=== PATIENT | male | born 1995 | race Caucasian/White ===

== ENCOUNTER 2020-06-08 05:02 | Inpatient (IN) | payer BC ==
[2020-06-08] MEDS ORDERED: SODIUM CHLORIDE 0.9% 500 ML 500 ML IV STA (05:30)
[2020-06-08] MEDS ORDERED: KETOROLAC 15 MG/ML 1 ML VIAL IVP STA (05:30)
--- NOTE | 2020-06-08 05:34 | ED ---
Abdominal Pain HPI - General Chief Complaint: Abdominal Pain Stated Complaint: Abdominal Pain Time Seen by Provider: 06/08/20 05:25 Source: patient Mode of arrival: ambulatory Limitations: no limitations - History of Present Illness Initial Comments: This patient is 24-year-old man presenting to be evaluated for right lower quadrant abdominal pain. The patient states pain and come on yesterday in the evening. Initially it was mild to moderate, he was able tolerate the pain. Over the course of the evening and into the morning it has become more severe. He also has had some nausea associated and did have episode of vomiting. MD Complaint: abdominal pain Onset/Timin -: hour(s) Location: RLQ Radiation: none Migration to: no migration Severity: severe Severity scale (1-10): 8 Quality: sharp Consistency: intermittent Improves With: nothing Worsens With: nothing Associated Symptoms: nausea - Related Data Allergies Allergy/AdvReac Type Severity Reaction Status Date / Time No Known Allergies Allergy Verified 06/08/20 05:12 Review of Systems ROS Statement: Those systems with pertinent positive or pertinent negative responses have been documented in the HPI. ROS Other: All systems not noted in ROS Statement are negative. Constitutional: Denies: fever, chills Respiratory: Denies: cough, dyspnea Cardiovascular: Denies: chest pain, palpitations, edema Gastrointestinal: Reports: abdominal pain, nausea, vomiting. Denies: diarrhea, constipation, melena, hematochezia Genitourinary: Denies: dysuria, frequency, hematuria, testicular pain, testicular mass Musculoskeletal: Denies: back pain Skin: Denies: rash Neurological: Denies: headache Past Medical History Past Medical History: No Reported History History of Any Multi-Drug Resistant Organisms: None Reported Past Surgical History: No Surgical Hx Reported Past Psychological History: No Psychological Hx Reported Smoking Status: Never smoker Past Alcohol Use History: None Reported Past Drug Use History: None Reported General Exam Limitations: no limitations General appearance: alert, in no apparent distress Head exam: Present: atraumatic, normocephalic Eye exam: Present: normal appearance. Absent: scleral icterus, conjunctival inj ection ENT exam: Present: normal oropharynx Respiratory exam: Present: normal lung sounds bilaterally. Absent: respiratory distress, wheezes, rales, rhonchi, stridor Cardiovascular Exam: Present: regular rate, normal rhythm, normal heart sounds. Absent: systolic murmur, diastolic murmur, rubs, gallop GI/Abdominal exam: Present: soft, tenderness, normal bowel sounds. Absent: distended, guarding, rebound, rigid, mass, pulsatile mass Extremities exam: Present: normal inspection, normal capillary refill. Absent: pedal edema, calf tenderness Back exam: Present: normal inspection. Absent: CVA tenderness (R), CVA tenderness (L) Neurological exam: Present: alert Skin exam: Present: warm, dry, intact, normal color. Absent: rash Course Vital Signs 06/08/20 06/08/20 05:10 06:50 Temperature 98 F 98.4 F Pulse Rate 97 103 H Respiratory 20 16 Rate Blood Pressure 135/70 110/66 O2 Sat by Pulse 98 96 Oximetry Medical Decision Making - Lab Data Result diagrams: 06/08/20 05:36 06/08/20 05:36 Lab Results 06/08/20 06/08/20 Range/Units 05:36 05:36 WBC 16.5 H (3.8-10.6) k/uL RBC 5.56 (4.30-5.90) m/uL Hgb 16.8 (13.0-17.5) gm/dL Hct 46.5 (39.0-53.0) % MCV 83.7 (80.0-100.0) fL MCH 30.3 (25.0-35.0) pg MCHC 36.2 (31.0-37.0) g/dL RDW 13.1 (11.5-15.5) % Plt Count 231 (150-450) k/uL MPV 7.3 Neutrophils % 77 % Lymphocytes % 14 % Monocytes % 7 % Eosinophils % 1 % Basophils % 1 % Neutrophils # 12.7 H (1.3-7.7) k/uL Lymphocytes # 2.4 (1.0-4.8) k/uL Monocytes # 1.1 H (0-1.0) k/uL Eosinophils # 0.1 (0-0.7) k/uL Basophils # 0.1 (0-0.2) k/uL Hyperchromasia Slight Sodium 138 (137-145) mmol/L Potassium 3.8 (3.5-5.1) mmol/L Chloride 102 (98-107) mmol/L Carbon Dioxide 25 (22-30) mmol/L Anion Gap 11 mmol/L BUN 12 (9-20) mg/dL Creatinine 0.82 (0.66-1.25) mg/dL Est GFR (CKD-EPI)AfAm >90 (>60 ml/min/1.73 sqM) Est GFR (CKD-EPI)NonAf >90 (>60 ml/min/1.73 sqM) Glucose 139 H (74-99) mg/dL Calcium 10.5 H (8.4-10.2) mg/dL Total Bilirubin 1.0 (0.2-1.3) mg/dL AST 24 (17-59) U/L ALT 33 (4-49) U/L Alkaline Phosphatase 82 (38-126) U/L Total Protein 8.1 (6.3-8.2) g/dL Albumin 5.1 H (3.5-5.0) g/dL Amylase 62 (30-110) U/L Lipase 81 (23-300) U/L Disposition Clinical Impression: Acute appendicitis Disposition: ADMITTED IP TO THIS [facility] Condition: Good Is patient prescribed a controlled substance at d/c from ED?: No
--- NOTE | 2020-06-08 05:55 | CT ---
EXAM: CT Abdomen and Pelvis Without Intravenous Contrast CLINICAL HISTORY: ITS.REASON CT Reason: Abdominal pain, acute, RLQ TECHNIQUE: Axial computed tomography images of the abdomen and pelvis without intravenous contrast. CTDI is 10.57 mGy and DLP is 646.7 mGy-cm. This CT exam was performed using one or more of the following dose reduction techniques: automated exposure control, adjustment of the mA and/or kV according to patient size, and/or use of iterative reconstruction technique. COMPARISON: No previous studies. FINDINGS: Lung bases: Unremarkable. No mass. No consolidation. Pleural space: No pleural effusions noted. Heart: Heart is normal in size. ABDOMEN: Liver: Unremarkable. Gallbladder and bile ducts: Gallbladder is unremarkable. No calcified stones. No ductal dilation. Pancreas: Unremarkable. No ductal dilation. Spleen: Unremarkable. No splenomegaly. Adrenals: Unremarkable. No mass. Kidneys and ureters: No renal calculus or hydronephrosis. Stomach and bowel: Moderate quantity of stool throughout the colon without bowel obstruction. No mucosal thickening. PELVIS: Appendix: Appendix is markedly distended containing a 0.6 cm appendicolith at its base and two 0.7 cm appendicolith at its tip. Inflammatory changes are noted about the appendix without abscess formation. Bladder: Bladder is underdistended. No stones. Reproductive: Unremarkable as visualized. ABDOMEN and PELVIS: Intraperitoneal space: Minimal free intra-abdominal air is noted best seen on coronal image 47 and 46. No significant fluid collection. Bones/joints: No spondylolysis. No acute fracture. No dislocation. Soft tissues: Unremarkable. Vasculature: Unremarkable. No abdominal aortic aneurysm. Lymph nodes: Unremarkable. No enlarged lymph nodes. IMPRESSION: 1. Acute appendicitis without abscess formation but with possible early rupture. 2. Appendicolith. 3. Minimal free intra-abdominal air is noted indicative of ruptured viscus. 4. Surgical consultation is advised. <MYCVCSECTION> Communications: 06/08/20 05:57 Call Doctor Regarding Appendicitis, called Dr. Anderson on 06/08 05:57 (-05:00)
[2020-06-08] MEDS ORDERED: MORPHINE SULFATE 4 MG/ML SYRINGE IV STA (06:03)
[2020-06-08 06:06] LABS: Basophils # (A) 0.1 k/uL (0-0.2); Basophils % (A) 1 %; Eosinophils # (A) 0.1 k/uL (0-0.7); Eosinophils % (A) 1 %; HCT 46.5 % (39.0-53.0); HGB 16.8 gm/dL (13.0-17.5); Hyperchromasia Slight; Lymphocytes # (A) 2.4 k/uL (1.0-4.8); Lymphocytes % (A) 14 %; MCH 30.3 pg (25.0-35.0); MCHC 36.2 g/dL (31.0-37.0); MCV 83.7 fL (80.0-100.0); Mean Platelet Volume 7.3; Monocytes # (A) 1.1 k/uL (0-1.0); Monocytes % (A) 7 %; Neutrophils # (A) 12.7 k/uL (1.3-7.7); Neutrophils % (A) 77 %; Platelet Count 231 k/uL (150-450); RBC 5.56 m/uL (4.30-5.90); RDW 13.1 % (11.5-15.5); WBC 16.5 k/uL (3.8-10.6)
[2020-06-08 06:18] LABS: ALT 33 U/L (4-49); AST 24 U/L (17-59); African American GFR (CKD) >90 (>60 ml/min/1.73 sqM); Albumin 5.1 g/dL (3.5-5.0); Alkaline Phosphatase 82 U/L (38-126); Amylase 62 U/L (30-110); Anion Gap 11 mmol/L; Blood Urea Nitrogen 12 mg/dL (9-20); Calcium 10.5 mg/dL (8.4-10.2); Carbon Dioxide 25 mmol/L (22-30); Chloride 102 mmol/L (98-107); Glucose 139 mg/dL (74-99); Lipase 81 U/L (23-300); Non-African American GFR(CKD) >90 (>60 ml/min/1.73 sqM); Potassium 3.8 mmol/L (3.5-5.1); Sodium 138 mmol/L (137-145); Total Protein 8.1 g/dL (6.3-8.2)
[2020-06-08] MEDS ORDERED: AMPICILLIN-SULBACTAM 3 GM in SODIUM CHLORIDE 0.9% 100 ML IVPB STA (06:31)
[2020-06-08] MEDS ORDERED: NALOXONE 0.4 MG/ML 1 ML VIAL IV PRN (06:32)
[2020-06-08] MEDS ORDERED: MORPHINE SULFATE 4 MG/ML SYRINGE IV PRN (06:32)
[2020-06-08] MEDS ORDERED: ONDANSETRON 4 MG/2 ML VIAL IVP STA (06:48)
[2020-06-08] MEDS: SODIUM CHLORIDE 0.9% 1,000 ML IV SCH ×3 (06:48→23:06)
[2020-06-08 07:23] LABS: C Reactive Protein <5.0 mg/L (<10.0)
[2020-06-08] MEDS ORDERED: BUPIVACAINE (PF) 0.25% 30 ML VIAL SQ ONE ×3 (08:26→10:10)
--- NOTE | 2020-06-08 08:46 | P.GSHP ---
History of Present Illness H&P Date: 06/08/20 Chief Complaint: Acute appendicitis 24-year-old male comes in the hospital this morning with pain that slowly began yesterday evening. Gradually the pain has become more severe. He has had episodes of nausea and vomiting. Pain mostly right lower quadrant. White blood cell count elevated. CAT scan performed showing a very large appendix with appendicoliths and suggestion of small area of perforation of the appendix. - Review of Systems Comment: The patient denies any acute changes in vision or hearing, no dysphagia or odynophagia, no chest pain or shortness of breath, no dysuria or hematuria, no headache, no runny nose, no rectal bleeding or melena, no unexplained weight loss Past Medical History Past Medical History: No Reported History History of Any Multi-Drug Resistant Organisms: None Reported Past Surgical History: No Surgical Hx Reported Past Anesthesia/Blood Transfusion Reactions: No Reported Reaction Past Psychological History: No Psychological Hx Reported Smoking Status: Never smoker Past Alcohol Use History: None Reported Past Drug Use History: None Reported Medications and Allergies Allergies Allergy/AdvReac Type Severity Reaction Status Date / Time No Known Allergies Allergy Verified 06/08/20 05:12 Surgical - Exam Vital Signs Temp Pulse Resp BP Pulse Ox 98 F 97 20 135/70 98 06/08/20 05:10 06/08/20 05:10 06/08/20 05:10 06/08/20 05:10 06/08/20 05:10 Physical exam: General: Well-developed, well-nourished HEENT: Normocephalic, sclerae nonicteric Abdomen: Right lower quadrant tenderness, nondistended Extremities: No edema Neuro: Alert and oriented Results - Labs 06/08/20 05:36 06/08/20 05:36 Abnormal Lab Results - Last 24 Hours (Table) 06/08/20 06/08/20 Range/Units 05:36 05:36 WBC 16.5 H (3.8-10.6) k/uL Neutrophils # 12.7 H (1.3-7.7) k/uL Monocytes # 1.1 H (0-1.0) k/uL Glucose 139 H (74-99) mg/dL Calcium 10.5 H (8.4-10.2) mg/dL Albumin 5.1 H (3.5-5.0) g/dL Diabetes panel 06/08/20 Range/Units 05:36 Sodium 138 (137-145) mmol/L Potassium 3.8 (3.5-5.1) mmol/L Chloride 102 (98-107) mmol/L Carbon Dioxide 25 (22-30) mmol/L BUN 12 (9-20) mg/dL Creatinine 0.82 (0.66-1.25) mg/dL Glucose 139 H (74-99) mg/dL Calcium 10.5 H (8.4-10.2) mg/dL AST 24 (17-59) U/L ALT 33 (4-49) U/L Alkaline Phosphatase 82 (38-126) U/L Total Protein 8.1 (6.3-8.2) g/dL Albumin 5.1 H (3.5-5.0) g/dL Calcium panel 06/08/20 Range/Units 05:36 Calcium 10.5 H (8.4-10.2) mg/dL Albumin 5.1 H (3.5-5.0) g/dL Pituitary panel 06/08/20 Range/Units 05:36 Sodium 138 (137-145) mmol/L Potassium 3.8 (3.5-5.1) mmol/L Chloride 102 (98-107) mmol/L Carbon Dioxide 25 (22-30) mmol/L BUN 12 (9-20) mg/dL Creatinine 0.82 (0.66-1.25) mg/dL Glucose 139 H (74-99) mg/dL Calcium 10.5 H (8.4-10.2) mg/dL Adrenal panel 06/08/20 Range/Units 05:36 Sodium 138 (137-145) mmol/L Potassium 3.8 (3.5-5.1) mmol/L Chloride 102 (98-107) mmol/L Carbon Dioxide 25 (22-30) mmol/L BUN 12 (9-20) mg/dL Creatinine 0.82 (0.66-1.25) mg/dL Glucose 139 H (74-99) mg/dL Calcium 10.5 H (8.4-10.2) mg/dL Total Bilirubin 1.0 (0.2-1.3) mg/dL AST 24 (17-59) U/L ALT 33 (4-49) U/L Alkaline Phosphatase 82 (38-126) U/L Total Protein 8.1 (6.3-8.2) g/dL Albumin 5.1 H (3.5-5.0) g/dL Assessment and Plan (1) Acute appendicitis Narrative/Plan: 24-year-old male with history and diagnostic studies consistent with acute appendicitis. Will proceed with laparoscopic, possible open appendectomy at this time. Risks of bleeding, infection, conversion to an open procedure, abscess, bladder bowel and ureteral injury were reviewed. Patient understands and wishes to proceed. Current Visit: Yes Status: Acute Code(s): K35.80 - UNSPECIFIED ACUTE APPE NDICITIS SNOMED Code(s): 93936397
[2020-06-08] MEDS ORDERED: fentaNYL (PF) 50 MCG/ML 2 ML AMP ONE (09:47)
[2020-06-08] MEDS ORDERED: SUCCINYLCHOLINE CHLORIDE 100 MG/5 ML SYR IV ONE (09:47)
[2020-06-08] MEDS ORDERED: PROPOFOL 10 MG/ML 20 ML VIAL IV ONE (09:47)
[2020-06-08] MEDS ORDERED: SODIUM CHLORIDE 0.9% 1,000 ML IV ONE (09:47)
[2020-06-08] MEDS ORDERED: KETOROLAC 15 MG/ML 1 ML VIAL ONE (09:47)
[2020-06-08] MEDS ORDERED: ONDANSETRON 4 MG/2 ML VIAL ONE (09:47)
[2020-06-08] MEDS ORDERED: MIDAZOLAM 2 MG/2 ML VIAL ONE (09:47)
[2020-06-08] MEDS ORDERED: SODIUM CHLORIDE 0.9% 100 ML with ceFAZolin 2,000 MG IV ONE ×2 (10:07)
[2020-06-08] MEDS ORDERED: LACTATED RINGERS 1,000 ML IV ONE (10:35)
[2020-06-08] MEDS ORDERED: HYDROmorphone 1 MG/ML 1 ML SYRINGE IVP PRN (10:43)
--- NOTE | 2020-06-08 10:46 | P.OP ---
Date of Procedure: 06/08/20 Procedure(s) Performed: PREOPERATIVE DIAGNOSIS: Acute appendicitis POSTOPERATIVE DIAGNOSIS: Ruptured appendicitis with peritonitis PROCEDURE: Laparoscopic appendectomy SURGEON: Nicole EBL: 5 mL ANESTHESIA: General COMPLICATIONS: None OPERATIVE PROCEDURE: The patient was brought and placed on the operating table in the supine position. The patient was placed under general anesthesia. The abdomen was prepped and draped in the usual sterile fashion. A small vertical infraumbilical incision was made. The fascia was retracted anteriorly with Stanton forceps. The Veress needle was advanced into the peritoneal cavity. The saline drop test was normal. Insufflation took place to 15 mmHg. A 5 mm trocar was then placed. An additional 5 mm suprapubic trocar was placed under direct visualization as well as a 12 mm left lower quadrant trocar under direct visualization. The patient had purulent fluid within the abdominal cavity and evidence of peritonitis with erythema of all peritoneal surfaces. A lookey was utilized to collect a portion of the purulent fluid and sent for culture. The appendix was inspected. It was acutely inflamed and had a perforation approximately one third the distance to the tip. There was no visible appendicolith in the abdominal cavity. The mesoappendix was dissected. The base of the appendix was divided using a linear 45 mm intestinal stapler. The mesentery itself was divided using the LigaSure device. The area was then irrigated. No further purulence or bleeding was seen. The appendix was brought out of the peritoneal cavity through the left lower quadrant trocar site with an Endo Catch bag. The fascia at the 12 mm site was closed using a [id number] 0 Vicryl stitch. The skin at all 3 sites was closed using 4-0 Monocryl sutures. Skin glue was then applied. DISPOSITION: Stable to recovery room
[2020-06-08] MEDS ORDERED: KETOROLAC 15 MG/ML 1 ML VIAL IVP ONE (11:05)
[2020-06-08] MEDS: ONDANSETRON 4 MG/2 ML VIAL IVP PRN (11:21)
[2020-06-08] MEDS: KETOROLAC 15 MG/ML 1 ML VIAL IVP SCH ×2 (12:22→17:51)
[2020-06-08] MEDS: metroNIDAZOLE-NS PMX 500 MG in SALINE 1 100ML.BAG IVPB SCH ×2 (12:28→21:45)
[2020-06-08] MEDS: D5-0.45% NACL WITH KCL 20MEQ/L 1,000 ML IV SCH ×2 (13:20→22:03)
[2020-06-08] MEDS: PIPERACILLIN-TAZOBACTAM 3.375 GM in SODIUM CHLORIDE 0.9% 100 ML IVPB SCH ×2 (13:35→21:45)
[2020-06-08 14:08] LABS: Appearance,Urine Clear (Clear); Bilirubin,Urine Negative (Negative); Blood,Urine Negative (Negative); Color,Urine Yellow; Glucose,Urine (UA) Negative (Negative); Ketones,Urine Trace (Negative); Leukocyte Esterase,Urine Trace (Negative); Mucus,Urine Many /hpf; Nitrite,Urine Negative (Negative); PH, Urine 6.5 (5.0-8.0); Protein,Urine 1+ (Negative); RBC,Urine 1 /hpf (0-5); Specific Gravity,Urine 1.037 (1.001-1.035); Squamous Epithelial Cell,Urine <1 /hpf (0-4); Urobilinogen,Urine <2.0 mg/dL (<2.0); WBC,Urine 3 /hpf (0-5)
[2020-06-08] MEDS: HEPARIN SODIUM,PORCINE 5,000 UNIT/ML 1 ML VIAL SQ SCH (16:25)
--- NOTE | 2020-06-08 17:36 | P.CONS ---
History of Present Illness - Reason for Consult Consult date: 06/08/20 Medical management - Chief Complaint Abdominal pain - History of Present Illness 24-year-old male comes in the hospital this morning with pain that slowly began yesterday evening. Gradually the pain has become more severe. He has had episodes of nausea and vomiting. Pain mostly right lower quadrant. White blood cell count elevated. CAT scan performed showing a very large appendix with appendicoliths and suggestion of small area of perforation of the appendix. Patient was admitted to the hospital for surgical evaluation and underwent laparoscopic appendectomy with a postoperative diagnosis of ruptured appendix and peritonitis; patient is currently on IV Unasyn and Flagyl Review of Systems REVIEW OF SYSTEMS: CONSTITUTIONAL: No fever, no malaise, no fatigue. HEENT: No recent visual problems or hearing problems. Denied any sore throat. CARDIOVASCULAR: No chest pain, orthopnea, PND, no palpitations, no syncope. PULMONARY: No shortness of breath, no cough, no hemoptysis. GASTROINTESTINAL: No diarrhea, no nausea, no vomiting, no abdominal pain. NEUROLOGICAL: No headaches, no weakness, no numbness. HEMATOLOGICAL: Denies any bleeding or petechiae. GENITOURINARY: Denies any burning micturition, frequency, or urgency. MUSCULOSKELETAL/RHEUMATOLOGICAL: Denies any joint pain, swelling, or any muscle pain. ENDOCRINE: Denies any polyuria or polydipsia. The rest of the 14-point review of systems is negative. Past Medical History Past Medical History: No Reported History History of Any Multi-Drug Resistant Organisms: None Reported Past Surgical History: No Surgical Hx Reported Past Anesthesia/Blood Transfusion Reactions: No Reported Reaction Past Psychological History: No Psychological Hx Reported Smoking Status: Never smoker Past Alcohol Use History: None Reported Past Drug Use History: None Reported Medications and Allergies Home Medications Medication Instructions Recorded Confirmed Type No Known Home Medications 06/08/20 06/08/20 History Allergies Allergy/AdvReac Type Severity Reaction Status Date / Time No Known Allergies Allergy Verified 06/08/20 08:48 Physical Exam Vitals: Vital Signs Temp Pulse Pulse Pulse Resp BP BP 06/08/20 11:30 98 18 132/75 06/08/20 11:15 96 18 118/69 06/08/20 11:01 96 16 116/69 06/08/20 10:54 98.2 F 82 20 121/69 06/08/20 07:07 98.2 F 109 H 16 124/77 06/08/20 06:50 98.4 F 103 H 16 110/66 06/08/20 05:10 98 F 97 20 135/70 Pulse Ox 06/08/20 11:30 98 06/08/20 11:15 96 06/08/20 11:01 96 06/08/20 10:54 96 06/08/20 07:07 100 06/08/20 06:50 96 06/08/20 05:10 98 Intake and Output 06/07/20 06/08/20 06/08/20 22:59 06:59 14:59 Intake Total 1400 Output Total 5 Balance 1395 Intake: IV 1400 Output: Estimated Blood Loss 5 Other: Weight 90.718 kg 90.718 kg - Constitutional General appearance: Present: average body habitus, cooperative, no acute distress - EENT Eyes: Present: anicteric sclerae, EOMI, PERRLA, normal appearance ENT: Present: hearing grossly normal, normal oropharynx Ears: bilateral: normal - Neck Neck: Present: normal ROM. Absent: lymphadenopathy, rigidity, thyromegaly Carotids: negative: bruit present Thyroid: bilateral: normal size, negative: enlarged, nodule - Respiratory Respiratory: bilateral: CTA, negative: rales, rhonchi, wheezing - Cardiovascular Rhythm: regular Heart sounds: normal: S1, S2 Abnormal Heart Sounds: Absent: systolic murmur, diastolic murmur - Gastrointestinal General gastrointestinal: Present: normal bowel sounds, soft. Absent: distended, organomegaly, tenderness - Genitourinary Genitourinary Comment(s): deferred - Integumentary Integumentary: Present: normal turgor. Absent: jaundiced, rash, ulcer - Neurologic Neurologic: Present: CNII-XII intact. Absent: focal deficits - Musculoskeletal Musculoskeletal: Present: gait normal, strength equal bilaterally - Psychiatric Psychiatric: Present: A&O x's 3, appropriate affect, intact judgment & insight Results CBC & Chem 7: 06/08/20 05:36 06/08/20 05:36 Labs: Abnormal Lab Results - Last 24 Hours (Table) 06/08/20 06/08/20 Range/Units 05:36 05:36 WBC 16.5 H (3.8-10.6) k/uL Neutrophils # 12.7 H (1.3-7.7) k/uL Monocytes # 1.1 H (0-1.0) k/uL Glucose 139 H (74-99) mg/dL Calcium 10.5 H (8.4-10.2) mg/dL Albumin 5.1 H (3.5-5.0) g/dL Assessment and Plan Assessment: 1. Ruptured appendix/peritonitis; patient is status post laparoscopic appendectomy; remains on IV Unasyn and Flagyl; we will continue with IV antibiotics pending final culture results; recommend ID consult for recommendations on antibiotics and duration of therapy 2. Hyperglycemia; possibly stress-induced; no history of diabetes; we will monitor Accu-Cheks closely with insulin sliding scale as needed 3. Hypercalcemia; we will continue to hydrate patient and repeat calcium levels with further recommendations 4. Obesity; counseling done on need for weight loss DVT prophylaxis; per discretion of surgery to CODE STATUS; full code
[2020-06-08] MEDS: DOCUSATE 100 MG CAP PO SCH (21:45)
[2020-06-09] MEDS: KETOROLAC 15 MG/ML 1 ML VIAL IVP SCH ×4 (00:59→18:22)
[2020-06-09] MEDS: HEPARIN SODIUM,PORCINE 5,000 UNIT/ML 1 ML VIAL SQ SCH ×4 (00:59→20:18)
[2020-06-09] MEDS: D5-0.45% NACL WITH KCL 20MEQ/L 1,000 ML IV SCH ×2 (03:14→12:56)
[2020-06-09] MEDS: metroNIDAZOLE-NS PMX 500 MG in SALINE 1 100ML.BAG IVPB SCH ×3 (03:14→20:17)
[2020-06-09] MEDS: HYDROcodone/APAP 5-325MG 1 EACH TAB PO PRN ×2 (03:39→16:07)
[2020-06-09] MEDS: ONDANSETRON 4 MG/2 ML VIAL IVP PRN ×2 (03:54→11:51)
[2020-06-09] MEDS: PIPERACILLIN-TAZOBACTAM 3.375 GM in SODIUM CHLORIDE 0.9% 100 ML IVPB SCH ×3 (04:49→20:17)
[2020-06-09 04:58] LABS: Basophils % (A) 0 %; Eosinophils # (A) 0.1 k/uL (0-0.7); Eosinophils % (A) 1 %; HCT 45.2 % (39.0-53.0); HGB 15.4 gm/dL (13.0-17.5); Lymphocytes # (A) 1.4 k/uL (1.0-4.8); Lymphocytes % (A) 12 %; MCH 29.4 pg (25.0-35.0); MCHC 34.1 g/dL (31.0-37.0); MCV 86.2 fL (80.0-100.0); Mean Platelet Volume 7.2; Monocytes # (A) 0.6 k/uL (0-1.0); Monocytes % (A) 5 %; Neutrophils # (A) 9.1 k/uL (1.3-7.7); Neutrophils % (A) 80 %; Platelet Count 197 k/uL (150-450); RBC 5.24 m/uL (4.30-5.90); RDW 13.7 % (11.5-15.5); WBC 11.3 k/uL (3.8-10.6)
[2020-06-09] MEDS: SODIUM CHLORIDE 0.9% 1,000 ML IV SCH ×2 (05:50→12:58)
[2020-06-09] MEDS: PANTOPRAZOLE 40 MG/10 ML VIAL IV SCH (08:35)
[2020-06-09] MEDS: DOCUSATE 100 MG CAP PO SCH ×2 (08:35→20:18)
[2020-06-09] MEDS: METOCLOPRAMIDE 5 MG/ML 2 ML VIAL IVP SCH ×2 (09:59→18:22)
--- NOTE | 2020-06-09 12:47 | P.PN ---
Subjective Progress Note Date: 06/09/20 - Reason for Consult Consult date: 06/08/20 Medical management - Chief Complaint Abdominal pain - History of Present Illness 24-year-old male comes in the hospital this morning with pain that slowly began yesterday evening. Gradually the pain has become more severe. He has had episodes of nausea and vomiting. Pain mostly right lower quadrant. White blood cell count elevated. CAT scan performed showing a very large appendix with appendicoliths and suggestion of small area of perforation of the appendix. Patient was admitted to the hospital for surgical evaluation and underwent laparoscopic appendectomy with a postoperative diagnosis of ruptured appendix and peritonitis; patient is currently on IV Unasyn and Flagyl 06/09/2020 Patient is seen and evaluated and follow-up currently severely nauseated and vomiting at this time. Patient is status post appendectomy. Following with surgery. Patient states he continues to have right lower abdominal quadrant discomfort although feels much better than yesterday. Patient has not gotten up and out of the bed since surgery and discussed with the patient along with nursing staff about having someone assist at the bedside until he is steady. Patient is currently maintained on clear liquids and states that his nausea and vomiting started this morning. Patient is currently maintained on IV antibiotics in the form of Zosyn and Flagyl and will continue at this time. White blood count trending down and is currently 11.3, hemoglobin is 15.4. We'll continue with IV hydration and repeat a.m. labs. Review of systems: Constitutional: No reports of fatigue, fever, or chills Cardiovascular: No reports of chest pain or palpitations Respiratory: No reports of shortness of breath or cough GI: Reports nausea and vomiting : No reports of dysuria or retention Neurovascular: No reports of weakness or numbness All medications have been reviewed Objective - Vital Signs Vital signs: Vital Signs Temp 98.2 F 06/09/20 06:59 Pulse 111 H 06/09/20 06:59 Resp 16 06/09/20 06:59 BP 107/73 06/09/20 06:59 Pulse Ox 92 L 06/09/20 06:59 Intake & Output 06/08/20 06/09/20 06/09/20 18:59 06:59 18:59 Intake Total 3330 Output Total 5 750 400 Balance 3325 -750 -400 Weight 90.718 kg Intake: IV 1400 Intake, IV Titration 1450 Amount D5-0.45% NaCl with KCl 1250 20Meq/l 1,000 ml @ 125 mls/hr IV .Q8H [facility]URA Rx#: [id number] Piperacillin-Tazobactam 3 100 .375 gm In Sodium Chloride 0.9% 100 ml @ 25 mls/hr IVPB Q8H [facility]URA Rx#: [id number] metroNIDAZOLE-NS PMX 500 100 mg In Saline 1 100ml.bag @ 100 mls/hr IVPB Q8H [facility]URA Rx#:[id number] Oral 480 Output: Urine 750 Emesis 400 Estimated Blood Loss 5 Other: # Voids 2 2 - Exam Gen: This is a 24-year-old male currently sitting up in bed awake, alert and oriented 3, well-developed, well-nourished. HEENT: Head is atraumatic, normocephalic. Pupils equal, round. Sclerae is anicteric. NECK: Supple. No JVD. No lymphadenopathy. No thyromegaly. LUNGS: Clear to auscultation. No wheezes or rhonchi. No intercostal retractions. HEART: Regular rate and rhythm. No murmur. ABDOMEN: Soft. Mild tenderness noted of the right lower quadrant. Bowel sounds are present. No masses. EXTREMITIES: No pedal edema. No calf tenderness. NEUROLOGICAL: Patient is awake, alert and oriented x3. Cranial nerves 2 through 12 are grossly intact. - Labs CBC & Chem 7: 06/09/20 04:13 06/08/20 05:36 Labs: Abnormal Lab Results - Last 24 Hours (Table) 06/08/20 06/09/20 Range/Units 13:48 04:13 WBC 11.3 H (3.8-10.6) k/uL Neutrophils # 9.1 H (1.3-7.7) k/uL Ur Specific Alba 1.037 H (1.001-1.035) Urine Protein 1+ H (Negative) Urine Ketones Trace H (Negative) Ur Leukocyte Esterase Trace H (Negative) Urine Mucus Many H (None) /hpf Microbiology - Last 24 Hours (Table) 06/08/20 10:16 Gram Stain - Preliminary Peritoneal Fluid Body Fluid Culture - Preliminary Gram Neg Bacilli 06/08/20 10:16 Anaerobic Culture - Preliminary Peritoneal Fluid Assessment and Plan Assessment: Ruptured appendix/peritonitis: Status post laparoscopic appendectomy, surgery postop day 1. Patient remains on IV Zosyn and Flagyl Hyperglycemia, possibly stress-induced with no history of diabetes: Continue with Accu-Cheks and sliding scale as needed Hypercalcemia Obesity DVT prophylaxis: Subcutaneous heparin GI prophylaxis: Protonix Full code Plan: Continue with current medications. Patient is maintained on IV antibiotics and will continue at this time. Infectious disease consult pending. White blood count trending down and will be a.m. labs. Continue with gentle IV hydration and repeat BMP in the morning. Patient currently experiencing nausea and vomiting and Reglan has been added. Continue to monitor for diet tolerance and advance slowly per surgery recommendations. Discussed with nursing staff and the patient about increasing activity as tolerated. Incentive spirometer ordered and instructed the patient to continue using at least 10 times every hour while awake. Will continue to follow along closely with surgery. Further recommendations to follow. Thank you for this consult
--- NOTE | 2020-06-09 13:12 | P.PN ---
<Lacy Alexander - Last Filed: 06/09/20 13:05> Subjective Progress Note Date: 06/09/20 CHIEF COMPLAINT: Ruptured appendicitis with peritonitis HISTORY OF PRESENT ILLNESS: Patient is status post laparoscopic appendectomy. He is reporting abdominal pain that is controlled with pain medication. He had 2 episodes of vomiting this morning. He denies flatus or having a bowel movement. He is currently on a regular diet. Afebrile. He has been tachycardic heart rate 111. White count has come down from 16.5-11.3. He is on Flagyl and Zosyn. Patient peritoneal fluid culture growing gram-negative bacilli PHYSICAL EXAM: VITAL SIGNS: Reviewed. GENERAL: Well-developed in no acute distress. HEENT: No sclera icterus. Extraocular movements grossly intact. Moist buccal mucosa. Head is atraumatic, normocephalic. ABDOMEN: Soft. Distended. Incision sites clean dry and intact NEUROLOGIC: Alert and oriented. Cranial nerves II through XII grossly intact. ASSESSMENT: 1. Ruptured appendicitis with peritonitis status post laparoscopic appendectomy PLAN: -Continue antibiotics -Continue IV fluids -Consult infectious disease -Reglan added for nausea and vomiting -Continue pain control -Encouraged patient to ambulate -Encourage incentive spirometer use -GI prophylaxis Protonix and DVT prophylaxis subcu heparin Physician Furniture Arranger note has been reviewed by physician. Signing provider agrees with the documented findings, assessment, and plan of care. Objective - Vital Signs Vital signs: Vital Signs Temp 98.2 F 06/09/20 06:59 Pulse 111 H 06/09/20 06:59 Resp 16 06/09/20 06:59 BP 107/73 06/09/20 06:59 Pulse Ox 92 L 06/09/20 06:59 Intake & Output 06/08/20 06/09/20 06/09/20 18:59 06:59 18:59 Intake Total 3330 Output Total 5 750 400 Balance 3325 -750 -400 Weight 90.718 kg Intake: IV 1400 Intake, IV Titration 1450 Amount D5-0.45% NaCl with KCl 1250 20Meq/l 1,000 ml @ 125 mls/hr IV .Q8H [facility] Rx#: [id number] Piperacillin-Tazobactam 3 100 .375 gm In Sodium Chloride 0.9% 100 ml @ 25 mls/hr IVPB Q8H [facility] Rx#: [id number] metroNIDAZOLE-NS PMX 500 100 mg In Saline 1 100ml.bag @ 100 mls/hr IVPB Q8H [facility] Rx#:[id number] Oral 480 Output: Urine 750 Emesis 400 Estimated Blood Loss 5 Other: # Voids 2 2 - Labs CBC & Chem 7: 06/09/20 04:13 06/08/20 05:36 Labs: Abnormal Lab Results - Last 24 Hours (Table) 06/08/20 06/09/20 Range/Units 13:48 04:13 WBC 11.3 H (3.8-10.6) k/uL Neutrophils # 9.1 H (1.3-7.7) k/uL Ur Specific [place] 1.037 H (1.001-1.035) Urine Protein 1+ H (Negative) Urine Ketones Trace H (Negative) Ur Leukocyte Esterase Trace H (Negative) Urine Mucus Many H (None) /hpf Microbiology - Last 24 Hours (Table) 06/08/20 10:16 Gram Stain - Preliminary Peritoneal Fluid Body Fluid Culture - Preliminary Gram Neg Bacilli 06/08/20 10:16 Anaerobic Culture - Preliminary Peritoneal Fluid <Davin Rivera - Last Filed: 06/09/20 15:51> Subjective As above. Patient with nausea and vomiting. Pain is improved however. White blood cell count is improved as well. Remains slightly tachycardic. He is afebrile. May require nasogastric tube. Continue broad-spectrum antibiotics. Agree with infectious disease consult. Await cultures. Objective - Vital Signs Vital signs: Vital Signs Temp 98.2 F 06/09/20 14:00 Pulse 118 H 06/09/20 14:00 Resp 18 06/09/20 14:00 BP 130/87 06/09/20 14:00 Pulse Ox 94 L 06/09/20 14:00 Intake & Output 06/08/20 06/09/20 06/09/20 18:59 06:59 18:59 Intake Total 3330 Output Total 5 750 400 Balance 3325 -750 -400 Weight 90.718 kg Intake: IV 1400 Intake, IV Titration 1450 Amount D5-0.45% NaCl with KCl 1250 20Meq/l 1,000 ml @ 125 mls/hr IV .Q8H [facility] Rx#: [id number] Piperacillin-Tazobactam 3 100 .375 gm In Sodium Chloride 0.9% 100 ml @ 25 mls/hr IVPB Q8H [facility] Rx#: [id number] metroNIDAZOLE-NS PMX 500 100 mg In Saline 1 100ml.bag @ 100 mls/hr IVPB Q8H [facility] Rx#:[id number] Oral 480 Output: Urine 750 Emesis 400 Estimated Blood Loss 5 Other: # Voids 2 2 - Labs CBC & Chem 7: 06/09/20 04:13 06/08/20 05:36 Labs: Abnormal Lab Results - Last 24 Hours (Table) 06/09/20 Range/Units 04:13 WBC 11.3 H (3.8-10.6) k/uL Neutrophils # 9.1 H (1.3-7.7) k/uL Microbiology - Last 24 Hours (Table) 06/08/20 10:16 Gram Stain - Preliminary Peritoneal Fluid Body Fluid Culture - Preliminary Gram Neg Bacilli 06/08/20 10:16 Anaerobic Culture - Preliminary Peritoneal Fluid Assessment and Plan (1) Acute appendicitis Current Visit: Yes Status: Acute Code(s): K35.80 - UNSPECIFIED ACUTE APPENDICITIS SNOMED Code(s): 57947319
--- NOTE | 2020-06-09 23:15 | CONS ---
CONSULTATION DATE OF SERVICE: 06/09/2020 REASON FOR CONSULTATION: Perforated appendicitis, secondary peritonitis. HISTORY OF PRESENT ILLNESS: The patient is a 24-year-old male presenting to the ER yesterday morning for evaluation of right lower quadrant abdominal pain of one day's duration. The patient's pain has been mostly in the right lower abdominal area described to be dull aching to sharp that subsequently increased in severity to be almost 10/10 with associated nausea and vomiting. Denies any diarrhea or constipation. Did have a fever with chills. With these symptoms the patient was evaluated by the ER physician on arrival in the ER. The patient has been afebrile subsequently. Did have a low-grade fever of 99.1. The patient has been tachycardic and did have a white count of 16.5. The patient had a CT of the abdomen and pelvis completed yesterday morning with a concern for acute appendicitis or abscess formation, but with possible early rupture. The patient was subsequently taken to the OR yesterday morning. The patient was noted to have ruptured appendicitis with peritonitis, status post laparoscopic appendectomy. Abdominal culture was obtained which is currently showing Gram-negative. The patient is being treated with Zosyn and Flagyl. Infectious Disease was consulted today for further management of antibiotic therapy. REVIEW OF SYSTEMS: Positive points have been mentioned in HPI. Rest of the systems are negative. PAST MEDICAL HISTORY: No major illnesses. PAST SURGICAL HISTORY: No surgeries. SOCIAL HISTORY: Denies smoking, drinking and drug use. FAMILY HISTORY: No pertinent findings noticed. ALLERGIES: NO KNOWN DRUG ALLERGIES. MEDICATIONS: The patient is currently on [place], Colace, heparin, Dilaudid, Toradol, Reglan, Zosyn, Flagyl, Protonix and Zofran. PHYSICAL EXAMINATION: Blood pressure is 130/87, pulse of 118, temperature 98.2. He is 94% on room air. General description is a middle-aged male lying in bed in no distress. No tachypnea or accessory muscle of respiration use. HEENT: Examination shows no pallor or scleral icterus. Oral mucous membrane is dry. No pharyngeal erythema or thrush. NECK: Trachea is central. No thyromegaly. LUNGS: Unlabored breathing. Clear to auscultation anteriorly. No wheeze or crackle. HEART: S1, S2. Regular rate and rhythm. ABDOMEN: Soft. Mildly distended and tender. No guarding or rigidity. No organomegaly. EXTREMITIES: No edema of the feet. SKIN EXAMINATION: No rash or mass palpable. Neurologically the patient is awake, alert, oriented x3. Mood and affect normal. LABS: Hemoglobin was 15.4 on admission, white count 16.5, BUN of 12, creatinine 0.82. CT report as mentioned above. DIAGNOSTIC IMPRESSION AND PLAN: Patient admitted to hospital with abdominal pain, nausea and vomiting in this patient diagnosed with acute ruptured appendicitis, status post laparoscopic appendectomy. Will need to cover for the enteric Gram-negative as likely pathogen in this patient not any antibiotic in the recent past. Could be a sensitive pathogen. PLAN: 1. Zosyn 3.375 grams q.8 hours; to continue while waiting for the culture to finalize. 2. Gentle IV fluid. 3. Will follow his clinical condition and culture to further adjust medication if needed. Thank you for this consultation. Will follow this patient along with you. SHY / CIARAN: [id number] /
[2020-06-10] MEDS: KETOROLAC 15 MG/ML 1 ML VIAL IVP SCH ×2 (00:02→04:55)
[2020-06-10] MEDS: METOCLOPRAMIDE 5 MG/ML 2 ML VIAL IVP SCH ×5 (00:03→23:24)
[2020-06-10] MEDS: metroNIDAZOLE-NS PMX 500 MG in SALINE 1 100ML.BAG IVPB SCH ×2 (02:58→16:39)
[2020-06-10] MEDS: SODIUM CHLORIDE 0.9% 1,000 ML IV SCH ×3 (02:58→20:10)
[2020-06-10] MEDS: PIPERACILLIN-TAZOBACTAM 3.375 GM in SODIUM CHLORIDE 0.9% 100 ML IVPB SCH ×3 (04:16→21:51)
[2020-06-10 05:22] LABS: Basophils % (A) 0 %; Eosinophils # (A) 0.2 k/uL (0-0.7); Eosinophils % (A) 2 %; HCT 42.1 % (39.0-53.0); HGB 14.8 gm/dL (13.0-17.5); Lymphocytes # (A) 1.4 k/uL (1.0-4.8); Lymphocytes % (A) 10 %; MCH 30.4 pg (25.0-35.0); MCV 86.8 fL (80.0-100.0); Mean Platelet Volume 7.5; Monocytes # (A) 0.7 k/uL (0-1.0); Monocytes % (A) 5 %; Neutrophils # (A) 11.1 k/uL (1.3-7.7); Neutrophils % (A) 82 %; Platelet Count 211 k/uL (150-450); RBC 4.85 m/uL (4.30-5.90); RDW 13.2 % (11.5-15.5); WBC 13.6 k/uL (3.8-10.6)
[2020-06-10] MEDS: HEPARIN SODIUM,PORCINE 5,000 UNIT/ML 1 ML VIAL SQ SCH ×3 (09:16→23:24)
[2020-06-10] MEDS: PANTOPRAZOLE 40 MG/10 ML VIAL IV SCH (09:16)
[2020-06-10] MEDS: DOCUSATE 100 MG CAP PO SCH ×2 (09:16→21:52)
[2020-06-10 09:54] LABS: African American GFR (CKD) 109.9 (60.0-200.0); Anion Gap 12.5 mmol/L (4.00-12.00); BUN/Creat Ratio 16.36 Ratio (12.00-20.00); Calcium 9.5 mg/dL (8.7-10.3); Carbon Dioxide 24.5 mmol/L (21.6-31.8); Non-African American GFR(CKD) 94.8 (60.0-200.0); Potassium 3.8 mmol/L (3.5-5.5)
[2020-06-10] MEDS ORDERED: SODIUM CHLORIDE 0.9% 1,000 ML IV ONE (09:56)
--- NOTE | 2020-06-10 11:10 | P.PN ---
<CatherineLacy - Last Filed: 06/10/20 11:03> Subjective Progress Note Date: 06/10/20 CHIEF COMPLAINT: Ruptured appendicitis with peritonitis HISTORY OF PRESENT ILLNESS: Patient is status post laparoscopic appendectomy. Patient had nausea and vomiting yesterday. He is feeling better today. Tolerated his clear liquid diet. Last episode of vomiting was last night. He reports improvement in his abdominal pain. He is having flatus and bowel movements. He is complaining of heartburn. Patient does report feeling dry. Nursing staff did report that his urine is dark. He is receiving a fluid bolus. Afebrile he has been tachycardic. However, heart rate is down to 104. White count is up at 13.6. Peritoneal fluid culture growing gram-negative bacilli. Patient seen and examined by infectious disease. Patient maintained on Zosyn and Flagyl. PHYSICAL EXAM: VITAL SIGNS: Reviewed. GENERAL: Well-developed in no acute distress. HEENT: No sclera icterus. Extraocular movements grossly intact. Moist buccal mucosa. Head is atraumatic, normocephalic. ABDOMEN: Soft. Nondistended Incision sites clean dry and intact NEUROLOGIC: Alert and oriented. Cranial nerves II through XII grossly intact. ASSESSMENT: 1. Ruptured appendicitis with peritonitis status post laparoscopic appendectomy PLAN: -Advanc diet to full liquids -We'll give 1 L fluid bolus -Continue antibiotics per ID -Continue IV fluids -Continue pain control -Continue Reglan, Protonix and Zofran -Encouraged patient to ambulate -Encourage incentive spirometer use -GI prophylaxis Protonix and DVT prophylaxis subcu heparin Physician Cell Biologist note has been reviewed by physician. Signing provider agrees with the documented findings, assessment, and plan of care. Objective - Vital Signs Vital signs: Vital Signs Temp 98.1 F 06/10/20 07:20 Pulse 104 H 06/10/20 07:20 Resp 16 06/10/20 07:20 BP 121/80 06/10/20 07:20 Pulse Ox 93 L 06/10/20 07:20 Intake & Output 06/09/20 06/10/20 06/10/20 18:59 06:59 18:59 Intake Total 1200 1500 118 Output Total 1600 250 Balance -400 1250 118 Intake: Intake, IV Titration 1200 1500 Amount D5-0.45% NaCl with KCl 1000 20Meq/l 1,000 ml @ 125 mls/hr IV .Q8H [facility] Rx#: [id number] Piperacillin-Tazobactam 3 100 .375 gm In Sodium Chloride 0.9% 100 ml @ 25 mls/hr IVPB Q8H [facility] Rx#: [id number] Sodium Chloride 0.9% 1, 1500 000 ml @ 125 mls/hr IV . Q8H [facility] Rx#:[id number] metroNIDAZOLE-NS PMX 500 100 mg In Saline 1 100ml.bag @ 100 mls/hr IVPB Q8H [facility] Rx#:[id number] Oral 118 Output: Urine 250 Emesis 1600 Other: Voiding Method Urinal # Voids 3 3 # Bowel Movements 1 1 1 - Labs CBC & Chem 7: 06/10/20 04:21 06/10/20 04:21 Labs: Abnormal Lab Results - Last 24 Hours (Table) 06/10/20 06/10/20 Range/Units 04:21 04:21 WBC 13.6 H (3.8-10.6) k/uL Neutrophils # 11.1 H (1.3-7.7) k/uL Anion Gap 12.50 H (4.00-12.00) mmol/L Microbiology - Last 24 Hours (Table) 06/08/20 10:16 Gram Stain - Preliminary Peritoneal Fluid Body Fluid Culture - Preliminary Gram Neg Bacilli <Davin Rivera - Last Filed: 06/10/20 16:42> Subjective As above. Patient doing better today. Nausea and vomiting improved. Slowly advance diet. Continue antibiotics. Culture showing E. coli. Increase activity. Objective - Vital Signs Vital signs: Vital Signs Temp 98.6 F 06/10/20 16:03 Pulse 96 06/10/20 16:03 Resp 18 06/10/20 16:03 BP 118/77 06/10/20 16:03 Pulse Ox 93 L 06/10/20 07:20 Intake & Output 06/09/20 06/10/20 06/10/20 18:59 06:59 18:59 Intake Total 1200 1500 118 Output Total 1600 250 Balance -400 1250 118 Intake: Intake, IV Titration 1200 1500 Amount D5-0.45% NaCl with KCl 1000 20Meq/l 1,000 ml @ 125 mls/hr IV .Q8H [facility] Rx#: [id number] Piperacillin-Tazobactam 3 100 .375 gm In Sodium Chloride 0.9% 100 ml @ 25 mls/hr IVPB Q8H [facility] Rx#: [id number] Sodium Chloride 0.9% 1, 1500 000 ml @ 125 mls/hr IV . Q8H [facility] Rx#:[id number] metroNIDAZOLE-NS PMX 500 100 mg In Saline 1 100ml.bag @ 100 mls/hr IVPB Q8H [facility] Rx#:[id number] Oral 118 Output: Urine 250 Emesis 1600 Other: Voiding Method Urinal # Voids 3 3 1 # Bowel Movements 1 1 1 - Labs CBC & Chem 7: 06/10/20 04:21 06/10/20 04:21 Labs: Abnormal Lab Results - Last 24 Hours (Table) 06/10/20 06/10/20 Range/Units 04:21 04:21 WBC 13.6 H (3.8-10.6) k/uL Neutrophils # 11.1 H (1.3-7.7) k/uL Anion Gap 12.50 H (4.00-12.00) mmol/L Microbiology - Last 24 Hours (Table) 06/08/20 10:16 Gram Stain - Preliminary Peritoneal Fluid Body Fluid Culture - Preliminary Escherichia coli Assessment and Plan (1) Acute appendicitis Current Visit: Yes Status: Acute Code(s): K35.80 - UNSPECIFIED ACUTE APPENDICITIS SNOMED Code(s): 90764340
--- NOTE | 2020-06-10 12:50 | P.PN ---
Subjective Progress Note Date: 06/10/20 - Reason for Consult Consult date: 06/08/20 Medical management - Chief Complaint Abdominal pain - History of Present Illness 24-year-old male comes in the hospital this morning with pain that slowly began yesterday evening. Gradually the pain has become more severe. He has had episodes of nausea and vomiting. Pain mostly right lower quadrant. White blood cell count elevated. CAT scan performed showing a very large appendix with appendicoliths and suggestion of small area of perforation of the appendix. Patient was admitted to the hospital for surgical evaluation and underwent laparoscopic appendectomy with a postoperative diagnosis of ruptured appendix and peritonitis; patient is currently on IV Unasyn and Flagyl 06/09/2020 Patient is seen and evaluated and follow-up currently severely nauseated and vomiting at this time. Patient is status post appendectomy. Following with surgery. Patient states he continues to have right lower abdominal quadrant discomfort although feels much better than yesterday. Patient has not gotten up and out of the bed since surgery and discussed with the patient along with nursing staff about having someone assist at the bedside until he is steady. Patient is currently maintained on clear liquids and states that his nausea and vomiting started this morning. Patient is currently maintained on IV antibiotics in the form of Zosyn and Flagyl and will continue at this time. White blood count trending down and is currently 11.3, hemoglobin is 15.4. We'll continue with IV hydration and repeat a.m. labs. 06/10/2020 Patient is seen in follow-up today with no acute overnight issues. Nausea and vomiting have subsided and patient is tolerating diet and is currently maintained on full liquids. Patient is up and taking a shower currently. White blood count slightly elevated at 13.6 today, sodium is 139, potassium is 3.8, BUN is 18 with a creatinine of 1.1. Will give 1 L bolus and repeat labs. Patient instructed and encouraged to continue using incentive spirometer and increasing activity as tolerated. Patient has been passing gas and having multi ple bowel movements and states his abdominal discomfort has improved. Patient to continue with IV antibiotics in the form of Zosyn at this time. Review of systems: Constitutional: No reports of fatigue, fever, or chills Cardiovascular: No reports of chest pain or palpitations Respiratory: No reports of shortness of breath or cough GI: No reports of nausea or vomiting : No reports of dysuria or retention Neurovascular: No reports of weakness or numbness All medications have been reviewed Objective - Vital Signs Vital signs: Vital Signs Temp 98.1 F 06/10/20 07:20 Pulse 104 H 06/10/20 07:20 Resp 16 06/10/20 07:20 BP 121/80 06/10/20 07:20 Pulse Ox 93 L 06/10/20 07:20 Intake & Output 06/09/20 06/10/20 06/10/20 18:59 06:59 18:59 Intake Total 1200 1500 118 Output Total 1600 250 Balance -400 1250 118 Intake: Intake, IV Titration 1200 1500 Amount D5-0.45% NaCl with KCl 1000 20Meq/l 1,000 ml @ 125 mls/hr IV .Q8H [facility] Rx#: [id number] Piperacillin-Tazobactam 3 100 .375 gm In Sodium Chloride 0.9% 100 ml @ 25 mls/hr IVPB Q8H [facility] Rx#: [id number] Sodium Chloride 0.9% 1, 1500 000 ml @ 125 mls/hr IV . Q8H [facility] Rx#:[id number] metroNIDAZOLE-NS PMX 500 100 mg In Saline 1 100ml.bag @ 100 mls/hr IVPB Q8H [facility] Rx#:[id number] Oral 118 Output: Urine 250 Emesis 1600 Other: Voiding Method Urinal # Voids 3 3 # Bowel Movements 1 1 1 - Exam Gen: This is a 24-year-old male currently up in the bathroom, alert and oriented 3, well-developed, well-nourished. HEENT: Head is atraumatic, normocephalic. Pupils equal, round. Sclerae is anicteric. NECK: Supple. No JVD. No lymphadenopathy. No thyromegaly. LUNGS: Clear to auscultation. No wheezes or rhonchi. No intercostal retractions . HEART: Regular rate and rhythm. No murmur. ABDOMEN: Soft. Nontender. Bowel sounds are present. No masses. EXTREMITIES: No pedal edema. No calf tenderness. NEUROLOGICAL: Patient is awake, alert and oriented x3. Cranial nerves 2 through 12 are grossly intact. - Labs CBC & Chem 7: 06/10/20 04:21 06/10/20 04:21 Labs: Abnormal Lab Results - Last 24 Hours (Table) 06/10/20 Range/Units 04:21 WBC 13.6 H (3.8-10.6) k/uL Neutrophils # 11.1 H (1.3-7.7) k/uL Microbiology - Last 24 Hours (Table) 06/08/20 10:16 Gram Stain - Preliminary Peritoneal Fluid Body Fluid Culture - Preliminary Gram Neg Bacilli Assessment and Plan Assessment: Ruptured appendix/peritonitis: Status post laparoscopic appendectomy, surgery postop day 2. Patient remains on IV Zosyn. Infectious disease is following Mild leukocytosis, secondary to above, white blood count 13.6, afebrile, mildly tachycardic at 104 Hyperglycemia, possibly stress-induced with no history of diabetes: Continue with Accu-Cheks and sliding scale as needed Hypercalcemia Obesity DVT prophylaxis: Subcutaneous heparin GI prophylaxis: Protonix Full code Plan: Continue with current medications. Patient is maintained on IV antibiotics and will continue at this time. Patient is afebrile although having mild leukocytosis with a white blood count of 13.6 which is trending down. Patient slightly tachycardic and oxygen saturation is 93-94% on room air will check a chest x-ray. Infectious disease following. Will repeat a.m. labs. Continue with gentle IV hydration and repeat BMP in the morning. Patient did receive 1 L bolus. Discussed with the patient about increasing activity as tolerated and continuing to use incentive spirometer at least 10 times every hour while awake. Will continue to follow along closely with surgery.
--- NOTE | 2020-06-10 13:15 | XR ---
EXAMINATION TYPE: XR chest 1V portable DATE OF EXAM: 06/10/2020 Comparison: None Clinical History: 24-year-old male shortness of breath Findings: Low lung volumes with crowded vascular markings. Heart size is accentuated, likely upper limits of no rmal. Peripheral frontal left base is underpenetrated and not well assessed. Remainder of the lungs s how no pleural effusion or consolidation. There may be some mildly dilated small bowel loops in the upper abdomen measuring up to 3.2 cm. Impression: Hypoventilatory changes. Peripheral left base is underpenetrated and not well assessed. Remainder of the lungs are clear. There may be some mildly dilated small bowel loops in the upper abdomen.
[2020-06-10] MEDS: HYDROcodone/APAP 5-325MG 1 EACH TAB PO PRN ×2 (13:29→21:48)
--- NOTE | 2020-06-10 13:57 | P.PN ---
Subjective Progress Note Date: 06/10/20 HISTORY OF PRESENT ILLNESS This is a 24-year-old male patient presented to the hospital with perforated ap pendicitis and secondary peritonitis. He presented with low-grade temperature and leukocytosis of 16.5. CAT scan of the abdomen and pelvis was concerning for acute appendicitis and abscess formation. Patient went to the OR and is status post laparoscopic appendectomy. Repeat blood work revealed WBC of 13.6, creatinine 1.2. Abdominal wound culture revealed E. coli. He has been afebrile, heart rate 104, blood pressure 121/80, pulse ox 93% on room air. Chest x-ray reveals hypoventilatory changes. Peripheral left base is underpenetrated. Remainder of lungs are clear. There may be some mildly dilated small bowel loops in the upper abdomen. PHYSICAL EXAMINATION Gen: This is a 24-year-old male patient. He is resting but appears to be comfortable and in no acute distress. HEENT: Head is atraumatic, normocephalic. Pupils equal, round. Sclerae is anicteric. NECK: Supple. LUNGS: Clear to auscultation. No wheezes or rhonchi. No intercostal retractions. HEART: Regular rate and rhythm. No murmur. ABDOMEN: Soft. Bowel sounds are present. No masses. Mild tenderness right side. EXTREMITIES: No pedal edema. No calf tenderness. NEUROLOGICAL: Patient is awake, alert and oriented x3. ASSESSMENT Sepsis secondary to acute ruptured appendicitis status post microscopic appendectomy Secondary peritonitis PLAN Continue Zosyn 3.375 g IV piggyback every 8 hours Discontinue Flagyl. Continue supportive care. The above dictated assessment and findings were discussed with Dr. Ramos. The impression and plan of care have been directed as dictated. Kayla Vázquez nurse practitioner acting as scribe for Dr. Ramos. Objective - Vital Signs Vital signs: Vital Signs Temp 98.1 F 06/10/20 07:20 Pulse 104 H 06/10/20 07:20 Resp 16 06/10/20 07:20 BP 121/80 06/10/20 07:20 Pulse Ox 93 L 06/10/20 07:20 Intake & Output 06/09/20 06/10/20 06/10/20 18:59 06:59 18:59 Intake Total 1200 1500 118 Output Total 1600 250 Balance -400 1250 118 Intake: Intake, IV Titration 1200 1500 Amount D5-0.45% NaCl with KCl 1000 20Meq/l 1,000 ml @ 125 mls/hr IV .Q8H [facility] Rx#: [id number] Piperacillin-Tazobactam 3 100 .375 gm In Sodium Chloride 0.9% 100 ml @ 25 mls/hr IVPB Q8H [facility] Rx#: [id number] Sodium Chloride 0.9% 1, 1500 000 ml @ 125 mls/hr IV . Q8H [facility] Rx#:[id number] metroNIDAZOLE-NS PMX 500 100 mg In Saline 1 100ml.bag @ 100 mls/hr IVPB Q8H [facility] Rx#:[id number] Oral 118 Output: Urine 250 Emesis 1600 Other: Voiding Method Urinal # Voids 3 3 1 # Bowel Movements 1 1 1 - Labs CBC & Chem 7: 06/10/20 04:21 06/10/20 04:21 Labs: Abnormal Lab Results - Last 24 Hours (Table) 06/10/20 06/10/20 Range/Units 04:21 04:21 WBC 13.6 H (3.8-10.6) k/uL Neutrophils # 11.1 H (1.3-7.7) k/uL Anion Gap 12.50 H (4.00-12.00) mmol/L Microbiology - Last 24 Hours (Table) 06/08/20 10:16 Gram Stain - Preliminary Peritoneal Fluid Body Fluid Culture - Preliminary Gram Neg Bacilli
[2020-06-11] MEDS: SODIUM CHLORIDE 0.9% 1,000 ML IV SCH (03:12)
[2020-06-11] MEDS: PIPERACILLIN-TAZOBACTAM 3.375 GM in SODIUM CHLORIDE 0.9% 100 ML IVPB SCH ×2 (03:21→12:04)
[2020-06-11] MEDS: METOCLOPRAMIDE 5 MG/ML 2 ML VIAL IVP SCH ×2 (03:21→12:04)
[2020-06-11 04:35] LABS: Basophils % (A) 0 %; Eosinophils # (A) 0.5 k/uL (0-0.7); Eosinophils % (A) 4 %; HCT 41.4 % (39.0-53.0); HGB 14.4 gm/dL (13.0-17.5); Lymphocytes # (A) 1.1 k/uL (1.0-4.8); Lymphocytes % (A) 10 %; MCH 30.4 pg (25.0-35.0); MCHC 34.7 g/dL (31.0-37.0); MCV 87.6 fL (80.0-100.0); Mean Platelet Volume 7.1; Monocytes # (A) 0.6 k/uL (0-1.0); Monocytes % (A) 5 %; Neutrophils # (A) 9.2 k/uL (1.3-7.7); Neutrophils % (A) 79 %; Platelet Count 204 k/uL (150-450); RBC 4.72 m/uL (4.30-5.90); RDW 13.1 % (11.5-15.5); WBC 11.5 k/uL (3.8-10.6)
[2020-06-11 07:38] VITALS: PULSE 92
[2020-06-11] MEDS: PANTOPRAZOLE 40 MG/10 ML VIAL IV SCH (08:28)
[2020-06-11] MEDS: HEPARIN SODIUM,PORCINE 5,000 UNIT/ML 1 ML VIAL SQ SCH (08:29)
[2020-06-11] MEDS: DOCUSATE 100 MG CAP PO SCH (08:29)
[2020-06-11 12:32] LABS: Anion Gap 11.3 mmol/L (4.00-12.00); BUN/Creat Ratio 17.78 Ratio (12.00-20.00); Calcium 9.2 mg/dL (8.7-10.3); Carbon Dioxide 24.7 mmol/L (21.6-31.8); Non-African American GFR(CKD) 120.8 (60.0-200.0); Potassium 3.7 mmol/L (3.5-5.5)
--- NOTE | 2020-06-11 12:40 | P.PN ---
Subjective Progress Note Date: 06/11/20 - Reason for Consult Consult date: 06/08/20 Medical management - Chief Complaint Abdominal pain - History of Present Illness 24-year-old male comes in the hospital this morning with pain that slowly began yesterday evening. Gradually the pain has become more severe. He has had episodes of nausea and vomiting. Pain mostly right lower quadrant. White blood cell count elevated. CAT scan performed showing a very large appendix with appendicoliths and suggestion of small area of perforation of the appendix. Patient was admitted to the hospital for surgical evaluation and underwent laparoscopic appendectomy with a postoperative diagnosis of ruptured appendix and peritonitis; patient is currently on IV Unasyn and Flagyl 06/09/2020 Patient is seen and evaluated and follow-up currently severely nauseated and vomiting at this time. Patient is status post appendectomy. Following with surgery. Patient states he continues to have right lower abdominal quadrant discomfort although feels much better than yesterday. Patient has not gotten up and out of the bed since surgery and discussed with the patient along with nursing staff about having someone assist at the bedside until he is steady. Patient is currently maintained on clear liquids and states that his nausea and vomiting started this morning. Patient is currently maintained on IV antibiotics in the form of Zosyn and Flagyl and will continue at this time. White blood count trending down and is currently 11.3, hemoglobin is 15.4. We'll continue with IV hydration and repeat a.m. labs. 06/10/2020 Patient is seen in follow-up today with no acute overnight issues. Nausea and vomiting have subsided and patient is tolerating diet and is currently maintained on full liquids. Patient is up and taking a shower currently. White blood count slightly elevated at 13.6 today, sodium is 139, potassium is 3.8, BUN is 18 with a creatinine of 1.1. Will give 1 L bolus and repeat labs. Patient instructed and encouraged to continue using incentive spirometer and increasing activity as tolerated. Patient has been passing gas and having multi ple bowel movements and states his abdominal discomfort has improved. Patient to continue with IV antibiotics in the form of Zosyn at this time. 06/11/2020 Patient seen this morning currently sitting up in the bed tolerating low fiber diet. White blood count trending down and is currently 11.5 hemoglobin is stable at 14.4, sodium is 140, potassium is 3.7, creatinine has improved at 0.9. IV fluids have been discontinued. Patient has been and walking around with no difficulties and continues to use incentive spirometer as instructed. Patient is maintained on IV Zosyn and infectious disease following. Cultures have finalized showing E. coli which is pansensitive. Vital signs remained stable and patient has been afebrile for over 48 hours. Review of systems: Constitutional: No reports of fatigue, fever, or chills Cardiovascular: No reports of chest pain or palpitations Respiratory: No reports of shortness of breath or cough GI: No reports of nausea or vomiting : No reports of dysuria or retention Neurovascular: No reports of weakness or numbness All medications have been reviewed Objective - Vital Signs Vital signs: Vital Signs Temp 98.5 F 06/11/20 07:37 Pulse 92 06/11/20 07:37 Resp 18 06/11/20 08:00 BP 143/82 06/11/20 07:37 Pulse Ox 97 06/11/20 07:37 Intake & Output 06/10/20 06/11/20 06/11/20 18:59 06:59 18:59 Intake Total 1718 500 100 Balance 1718 500 100 Intake: Intake, IV Titration 1600 Amount Piperacillin-Tazobactam 3 100 .375 gm In Sodium Chloride 0.9% 100 ml @ 25 mls/hr IVPB Q8H [facility] Rx#: [id number] Sodium Chloride 0.9% 1, 1500 000 ml @ 999 mls/hr IV . Q1H1M ONE Rx#:[id number] Oral 118 500 100 Other: Voiding Method Toilet Toilet # Voids 4 # Bowel Movements 3 5 - Exam Gen: This is a 24-year-old male currently up in bed, alert and oriented 3, well-developed, well-nourished. HEENT: Head is atraumatic, normocephalic. Pupils equal, round. Sclerae is anicteric. NECK: Supple. No JVD. No lymphadenopathy. No thyromegaly. LUNGS: Clear to auscultation. No wheezes or rhonchi. No intercostal retractions. HEART: Regular rate and rhythm. No murmur. ABDOMEN: Soft. Nontender. Bowel sounds are present. No masses. Surgical site is dry and intact with no surrounding redness and surgical glue noted and nontender EXTREMITIES: No pedal edema. No calf tenderness. NEUROLOGICAL: Patient is awake, alert and oriented x3. Cranial nerves 2 through 12 are grossly intact. - Labs CBC & Chem 7: 06/11/20 04:23 06/10/20 04:21 Labs: Abnormal Lab Results - Last 24 Hours (Table) 06/11/20 Range/Units 04:23 WBC 11.5 H (3.8-10.6) k/uL Neutrophils # 9.2 H (1.3-7.7) k/uL Microbiology - Last 24 Hours (Table) 06/08/20 10:16 Gram Stain - Final Peritoneal Fluid Body Fluid Culture - Final Escherichia coli Assessment and Plan Assessment: Ruptured appendix/peritonitis: Status post laparoscopic appendectomy, surgery postop day 3. Patient remains on IV Zosyn. Cultures of the fluid showing E. coli. Infectious disease is following Mild leukocytosis, secondary to above, white blood count trending down and is 11.5 Hyperglycemia, possibly stress-induced with no history of diabetes, improved Hypercalcemia, improved Obesity DVT prophylaxis: Subcutaneous heparin GI prophylaxis: Protonix Full code Plan: Continue with current medications. Patient is maintained on IV antibiotics and infectious disease following and awaiting for discharge antibiotics recomme ndations. Fluid cultures finalized showing E. coli. White blood count trending down and is 11.5 today. Chest x-ray done yesterday shows lungs are clear with no pleural effusion or consolidation and oxygen saturations have improved. Patient is currently 99% on room air. Patient continues to use incentive spirometer as instructed. Will continue to follow along closely with surgery.
[2020-06-11 14:07] VITALS: BP 124/79; RESP 20; TEMP 98.6
--- NOTE | 2020-06-11 14:10 | PN ---
PROGRESS NOTE DATE OF SERVICE: 06/11/2020 REASON FOR FOLLOWUP: Ruptured appendicitis and secondary peritonitis. INTERVAL HISTORY: The patient is currently afebrile. The patient overall is feeling better. Breathing comfortably. Pain and discomfort to abdominal area has improved. Denies having any chest pain. No shortness of breath or cough. PHYSICAL EXAMINATION: Blood pressure 143/82 with a pulse of 92, temperature 98.5. He is 97% on room air. General description is a young male lying in bed in no distress. RESPIRATORY SYSTEM: Unlabored breathing, clear to auscultation anteriorly. HEART: S1, S2. Regular rate and rhythm. ABDOMEN: Soft, mild tenderness. No guarding or rigidity. LABS: Hemoglobin is 14.4, white count 11.5, creatinine 0.9. DIAGNOSTIC IMPRESSION AND PLAN: Patient with abdominal abscess from perforated appendicitis status post appendectomy. Culture with Escherichia coli sensitive pathogen and covered with Zosyn. Will plan to finish therapy with oral Cipro and Flagyl for 10 days and close outpatient followup. MMODL / IJN: [id number] /
--- NOTE | 2020-06-11 14:56 | P.DS ---
<AndrewLacy santos - Last Filed: 06/11/20 14:54> Providers Expected date of discharge: 06/11/20 Hospital Course: Discharge diagnosis 1. Ruptured appendicitis with peritonitis status post laparoscopic appendectomy Hospital course This is a 24-year-old male who presented to the hospital with right lower quadrant pain that became more severe. He also had episodes of nausea and vomiting. White count was elevated. Computed tomography scan showing very large appendix with appendicoliths and suggestion of small area of perforation of the appendix. Patient's is status post laparoscopic appendectomy for ruptured appendicitis with peritonitis. He tolerated surgery well. Fluid culture did grow E. coli. He was seen by infectious disease they're recommending Cipro and Flagyl for 10 more days. Patient is tolerating diet. His pain is controlled. He is having bowel movements. He is ambulating. Afebrile. Patient is stable for discharge. Please refer to chart for any further details. Physician Data Storage Specialist note has been reviewed by physician. Signing provider agrees with the documented findings, assessment, and plan of care. Patient Condition at Discharge: Stable Plan - Discharge Summary Discharge Rx Participant: No New Discharge Prescriptions: New Ciprofloxacin HCl [Cipro] 500 mg PO Q12HR 10 Days #20 tab Docusate [Colace] 100 mg PO BID #30 capsule metroNIDAZOLE [Flagyl] 500 mg PO TID #30 tab HYDROcodone/APAP 5-325MG [[place] 5-325] 1 tab PO Q6HR PRN 3 Days #12 tab PRN Reason: Pain Discharge Medication List Ciprofloxacin HCl [Cipro] 500 mg PO Q12HR 10 Days #20 tab 06/11/20 [Rx] Docusate [Colace] 100 mg PO BID #30 capsule 06/11/20 [Rx] HYDROcodone/APAP 5-325MG [[place] 5-325] 1 tab PO Q6HR PRN 3 Days #12 tab 06/11/20 [Rx] metroNIDAZOLE [Flagyl] 500 mg PO TID #30 tab 06/11/20 [Rx] Follow up Appointment(s)/Referral(s): Davin Rivera MD [Medical Doctor] - 06/19/20 8:15 am Doug Barnes DO [Primary Care Provider] - 1-2 days (Please call when office is open tomorrow and make and appointment) Patient Instructions/Handouts: Laparoscopic Appendectomy (DC) Activity/Diet/Wound Care/Special Instructions: No driving while taking Spencer No lifting over 10 pounds You may shower. No soaking or tub baths for 2 weeks Very light activity until you are reevaluated at your follow up appointment with your surgeon Discharge Disposition: HOME SELF-CARE <Davin Rivera - Last Filed: 06/11/20 18:19> Providers Date of admission: 06/08/20 06:32 Attending physician: Davin Rivera Consults: 06/09/20 11:49 Consult Physician Routine Consulting Provider: Josefa Ramos Consult Reason/Comments: Ruptured appendicitis with peritonitis Do you want consulting provider notified?: Yes Primary care physician: Doug Barnes - Discharge Diagnosis(es) (1) Acute appendicitis Status: Acute
--- NOTE | 2020-06-12 14:37 | CDI ---
Documentation Clarification Form Date: 06/12/2020 02:35:00 PM From: Morena Nicole CCS Phone: If you have a question about this query, please contact Lory Mistry [employer] Operator Chief at [phone] between 8am and 5pm Admit Date: 06/08/2020 06:32:00 AM Patient Name: Jamie Cano Visit Number: [id number] Discharge Date: 06/11/2020 04:47:00 PM ATTENTION: The Clinical Documentation Specialists (CDI) and [facility] Coding Staff appreciate your assistance in clarifying documentation. Please respond to the clarification below the line at the bottom and electronically sign. The CDI & [facility] Coding staff will review the response and follow-up if needed. Please note: Queries are made part of the Legal Health Record. If you have any questions, please contact the author of this message via ITS. Dr. Davin Rivera The patient presented with the following: Ruptured appendicitis with peritonitis and abscess 06/10 PN documents: Sepsis secondary to acute ruptured appendicitis status post microscopic appendectomy History/Risk Factors: Acute appendicitis with peritonitis, Obesity, Hyperglycemia Clinical Indicators: Tachycardia, Elevated WBC, Peritonitis WBC: 16.5, 11.3, 13.6, 11.5 Lactic acid: None Blood cultures: None Peritoneal Fluid: Escherichia Coli Vitals signs on admission: BP 135/70, RR 20, ID 97, Temp 98, O2 Sat 98 Treatment: Laparoscopic appendectomy ID Consult: Richard Antibiotics: Unasyn 3 gm IV, Zosyn 3.375 gm IV, IV Bolus: 1,000 ml IV 999 mls/ hr In your professional opinion, please clarify if these findings signify one of the following conditions, whether the condition is POA, and cause, if known: Condition Sepsis Present on Admission Yes SIRS Criteria (2 or more of the following may indicate SIRS): -Temperature < 96.8F (36C) or > 101.0F (38.3C) -Heart Rate > 90 bpm -Respiratory Rate > 20 breaths/min or PaCO2 < 32 mmHg -White Blood Cell Count > 12,000 or < 4,000 cells/mm3 or > 10% bands -Lactate >2.0 mmol/L (>4.0 is equivalent to septic shock) MTDD
== END 2020-06-11 16:47 | disposition home or self-care (01) | DRG 853 ==
LOC: EC 05:02 → OBSVTOIN 06:32 → 6NMEDSUR 06:32
PROVIDERS: ADMIT Surgery; ATTEND Surgery
PROC: 0DTJ4ZZ Resection of Appendix, Percutaneous Endoscopic Approach (ICD-10-PCS; principal; 2020-06-08 09:00)
DX: A41.51 Sepsis due to Escherichia coli [E. coli] (principal); K35.33 Acute appendicitis with perforation, localized peritonitis, and gangrene, with abscess; R73.9 Hyperglycemia, unspecified; E83.52 Hypercalcemia; E66.9 Obesity, unspecified; Z68.26 Body mass index [BMI] 26.0-26.9, adult
CPT/HCPCS: 36415; 71045; 74176; 80048; 80053; 81001; 82150; 83690; 85025; 86140; 87070; 87075; 87077; 87186; 87205; 88304; 96361; 96374; 96375; 99285

== ENCOUNTER 2020-06-13 08:40 | Observation (INO) | payer BC ==
[2020-06-13] MEDS ORDERED: SODIUM CHLORIDE 0.9% 1,000 ML IV STA (09:04)
--- NOTE | 2020-06-13 09:13 | ED ---
Nausea/Vomiting/Diarrhea HPI - General Chief complaint: Nausea/Vomiting/Diarrhea Stated complaint: vomiting, post surgery Time Seen by Provider: 06/13/20 08:50 Source: patient, family Mode of arrival: wheelchair Limitations: no limitations - History of Present Illness Initial comments: Patient is a 24-year-old male presenting to the emergency Department with complaints of nausea and vomiting that has been intermittent over the past 3 days. Patient was discharged from this hospital 2 days ago after undergoing appendectomy [address] Rivera. Patient states he has been taking Flagyl and Colace however he has been getting nauseous and vomiting these medicines back up after a couple hours. His appetite has also been very low. He states his abdominal pain is minimal, he has not had to take his pain medication very much. He has been having bowel movements, he has been passing gas as well. He denies any dysuria. He denies any fevers, chest pain, no shortness of breath. Patient's mother states they called Dr. Rivera's office this morning to let them know about the nausea and vomiting and they recommended going into the ER. Patient states he is currently not nauseous, abdominal pain is minimal, /10. Patient has no further complaints at this time. Upon arrival to the ER, his vital signs are stable. - Related Data Previous Rx's Medication Instructions Recorded Ciprofloxacin HCl [Cipro] 500 mg PO Q12HR 10 Days #20 tab 06/11/20 Docusate [Colace] 100 mg PO BID #30 capsule 06/11/20 HYDROcodone/APAP 5-325MG [[place] 1 tab PO Q6HR PRN 3 Days #12 tab 06/11/20 5-325] metroNIDAZOLE [Flagyl] 500 mg PO TID #30 tab 06/11/20 Allergies Allergy/AdvReac Type Severity Reaction Status Date / Time No Known Allergies Allergy Verified 06/13/20 09:59 Review of Systems ROS Statement: Those systems with pertinent positive or pertinent negative responses have been documented in the HPI. ROS Other: All systems not noted in ROS Statement are negative. Past Medical History Past Medical History: No Reported History History of Any Multi-Drug Resistant Organisms: None Reported Past Surgical History: Appendectomy Past Anesthesia/Blood Transfusion Reactions: No Reported Reaction Past Psychological History: No Psychological Hx Reported Smoking Status: Never smoker Past Alcohol Use History: None Reported Past Drug Use History: None Reported General Exam - General Exam Comments Initial Comments: GENERAL: Patient is well-developed and well-nourished. Patient is nontoxic and in no acute distress. HEAD: Atraumatic, normocephalic. EYES: Pupils equal round and reactive to light, extraocular movements intact, sclera anicteric, conjunctiva are normal. Eyelids were unremarkable. ENT: TMs normal, nares patent, oropharynx clear without exudates. Moist mucous membranes. NECK: Normal range of motion, supple without lymphadenopathy or JVD. LUNGS: Unlabored respirations. Breath sounds clear to auscultation bilaterally and equal. No wheezes rales or rhonchi. HEART: Regular rate and rhythm without murmurs, rubs or gallops. ABDOMEN: Patient's abdomen is mildly tender, mildly distended, incisions are clean dry a nd intact. Hypoactive bowel sounds. No guarding, no rebound. No masses appreciated. : Deferred MUSCULOSKELETAL: Normal extremities with adequate strength and normal range of motion, no pitting or edema. No clubbing or cyanosis. NEUROLOGICAL: Patient is alert and oriented x 3. Motor and sensory are also intact. Cranial nerves II through XII grossly intact. Symmetrical smile. Normal speech, normal gait. PSYCH: Normal mood, normal affect. SKIN: Warm, Dry, normal turgor, no rashes or lesions noted. Limitations: no limitations Course Vital Signs 06/13/20 06/13/20 06/13/20 08:47 09:48 10:00 Temperature 98.5 F Pulse Rate 86 76 71 Respiratory 18 18 18 Rate Blood Pressure 134/80 142/79 142/82 O2 Sat by Pulse 96 98 98 Oximetry - Reevaluation(s) Reevaluation #1: 06/13/20 11:10 Patient resting comfortably, no abdominal pain, nausea or vomiting. Awaiting callback from Dr. Rivera. Medical Decision Making - Medical Decision Making Patient is a 24-year-old male here 5 days postop from appendectomy by Dr. Rivera here for nausea and vomiting over the past 3 days. He has had no appetite. No fevers or chills. His vital signs are stable. Patient's abdomen does seem a bit distended comments his initial clean and dry, no signs of infection. Labs show slight white count 13, liver enzymes also a little bumped from normal. Lactic acid is normal. KUB shows concerns for possible ileus. I did do a CT of the abdomen which favors postoperative ileus, cannot exclude areas of multifocal enterocolitis, cannot exclude a small bowel obstruction. Case was discussed with Dr. Rivera who accepts admission. Pt will be kept NPO. Patient is agreement with this plan of care. Case discussed with Dr. Moreno. - Lab Data Result diagrams: 06/13/20 09:11 06/13/20 09:11 Lab Results 06/13/20 06/13/20 06/13/20 Range/Units 09:11 09:11 09:11 WBC 13.0 H (3.8-10.6) k/uL RBC 5.08 (4.30-5.90) m/uL Hgb 15.0 (13.0-17.5) gm/dL Hct 43.7 (39.0-53.0) % MCV 85.9 (80.0-100.0) fL MCH 29.6 (25.0-35.0) pg MCHC 34.4 (31.0-37.0) g/dL RDW 13.0 (11.5-15.5) % Plt Count 276 (150-450) k/uL MPV 6.7 Neutrophils % 79 % Lymphocytes % 10 % Monocytes % 6 % Eosinophils % 3 % Basophils % 1 % Neutrophils # 10.2 H (1.3-7.7) k/uL Lymphocytes # 1.2 (1.0-4.8) k/uL Monocytes # 0.8 (0-1.0) k/uL Eosinophils # 0.4 (0-0.7) k/uL Basophils # 0.1 (0-0.2) k/uL Sodium 139 (137-145) mmol/L Potassium 3.8 (3.5-5.1) mmol/L Chloride 104 (98-107) mmol/L Carbon Dioxide 24 (22-30) mmol/L Anion Gap 11 mmol/L BUN 13 (9-20) mg/dL Creatinine 0.81 (0.66-1.25) mg/dL Est GFR (CKD-EPI)AfAm >90 (>60 ml/min/1.73 sqM) Est GFR (CKD-EPI)NonAf >90 (>60 ml/min/1.73 sqM) Glucose 110 H (74-99) mg/dL Plasma Lactic Acid Rocael 0.8 (0.7-2.0) mmol/L Calcium 9.5 (8.4-10.2) mg/dL Total Bilirubin 0.7 (0.2-1.3) mg/dL AST 107 H (17-59) U/L ALT 112 H (4-49) U/L Alkaline Phosphatase 76 (38-126) U/L Total Protein 6.9 (6.3-8.2) g/dL Albumin 3.9 (3.5-5.0) g/dL Urine Color Urine Appearance (Clear) Urine pH (5.0-8.0) Ur Specific Luke (1.001-1.035) Urine Protein (Negative) Urine Glucose (UA) (Negative) Urine Ketones (Negative) Urine Blood (Negative) Urine Nitrite (Negative) Urine Bilirubin (Negative) Urine Urobilinogen (<2.0) mg/dL Ur Leukocyte Esterase (Negative) Urine RBC (0-5) /hpf Urine WBC (0-5) /hpf Amorphous Sediment (None) /hpf Urine Mucus (None) /hpf 06/13/20 Range/Units 10:37 WBC (3.8-10.6) k/uL RBC (4.30-5.90) m/uL Hgb (13.0-17.5) gm/dL Hct (39.0-53.0) % MCV (80.0-100.0) fL MCH (25.0-35.0) pg MCHC (31.0-37.0) g/dL RDW (11.5-15.5) % Plt Count (150-450) k/uL MPV Neutrophils % % Lymphocytes % % Monocytes % % Eosinophils % % Basophils % % Neutrophils # (1.3-7.7) k/uL Lymphocytes # (1.0-4.8) k/uL Monocytes # (0-1.0) k/uL Eosinophils # (0-0.7) k/uL Basophils # (0-0.2) k/uL Sodium (137-145) mmol/L Potassium (3.5-5.1) mmol/L Chloride (98-107) mmol/L Carbon Dioxide (22-30) mmol/L Anion Gap mmol/L BUN (9-20) mg/dL Creatinine (0.66-1.25) mg/dL Est GFR (CKD-EPI)AfAm (>60 ml/min/1.73 sqM) Est GFR (CKD-EPI)NonAf (>60 ml/min/1.73 sqM) Glucose (74-99) mg/dL Plasma Lactic Acid Rocael (0.7-2.0) mmol/L Calcium (8.4-10.2) mg/dL Total Bilirubin (0.2-1.3) mg/dL AST (17-59) U/L ALT (4-49) U/L Alkaline Phosphatase (38-126) U/L Total Protein (6.3-8.2) g/dL Albumin (3.5-5.0) g/dL Urine Color Yellow Urine Appearance Cloudy (Clear) Urine pH 6.5 (5.0-8.0) Ur Specific Luke 1.017 (1.001-1.035) Urine Protein Negative (Negative) Urine Glucose (UA) Negative (Negative) Urine Ketones Negative (Negative) Urine Blood Negative (Negative) Urine Nitrite Negative (Negative) Urine Bilirubin Negative (Negative) Urine Urobilinogen <2.0 (<2.0) mg/dL Ur Leukocyte Esterase Negative (Negative) Urine RBC <1 (0-5) /hpf Urine WBC 3 (0-5) /hpf Amorphous Sediment Occasional H (None) /hpf Urine Mucus Rare H (None) /hpf Disposition Clinical Impression: Postoperative ileus, Nausea and vomiting Disposition: ADMITTED IP TO THIS [facility] Condition: Stable Referrals: Doug Barnes DO [Primary Care Provider] - 1-2 days Decision Date: 06/13/20 Decision Time: 11:31
--- NOTE | 2020-06-13 09:25 | XR ---
EXAMINATION TYPE: XR KUB DATE OF EXAM: 06/13/2020 9:18 AM CLINICAL HISTORY: History of appendectomy 5 days ago with pain, nausea and vomiting TECHNIQUE: Two Upright KUB images of the abdomen are obtained. COMPARISON: CT abdomen and pelvis 5 days ago. FINDINGS: Gas prominent stomach with air-fluid level. Gas prominent small bowel loops throughout the abdomen with dilated loops in the left upper to mid abdomen with multiple air-fluid levels. Periphera l lower abdomen and pelvis shows less distended colonic loops with some scattered air-fluid levels. T here is no visceromegaly, pneumoperitoneum, or abnormal calcification appreciated. The lung bases are clear and the osseous structures are intact. IMPRESSION: Overall nonspecific bowel gas pattern. Suspect underlying ileus. Cannot exclude partial d istal small bowel obstruction on background diffuse ileus.
[2020-06-13 09:29] LABS: Basophils # (A) 0.1 k/uL (0-0.2); Basophils % (A) 1 %; Eosinophils # (A) 0.4 k/uL (0-0.7); Eosinophils % (A) 3 %; HCT 43.7 % (39.0-53.0); Lymphocytes # (A) 1.2 k/uL (1.0-4.8); Lymphocytes % (A) 10 %; MCH 29.6 pg (25.0-35.0); MCHC 34.4 g/dL (31.0-37.0); MCV 85.9 fL (80.0-100.0); Mean Platelet Volume 6.7; Monocytes # (A) 0.8 k/uL (0-1.0); Monocytes % (A) 6 %; Neutrophils # (A) 10.2 k/uL (1.3-7.7); Neutrophils % (A) 79 %; Platelet Count 276 k/uL (150-450); RBC 5.08 m/uL (4.30-5.90)
[2020-06-13 09:34] LABS: ALT 112 U/L (4-49); AST 107 U/L (17-59); African American GFR (CKD) >90 (>60 ml/min/1.73 sqM); Albumin 3.9 g/dL (3.5-5.0); Alkaline Phosphatase 76 U/L (38-126); Anion Gap 11 mmol/L; Blood Urea Nitrogen 13 mg/dL (9-20); Calcium 9.5 mg/dL (8.4-10.2); Carbon Dioxide 24 mmol/L (22-30); Chloride 104 mmol/L (98-107); Glucose 110 mg/dL (74-99); Non-African American GFR(CKD) >90 (>60 ml/min/1.73 sqM); Potassium 3.8 mmol/L (3.5-5.1); Sodium 139 mmol/L (137-145); Total Bilirubin 0.7 mg/dL (0.2-1.3); Total Protein 6.9 g/dL (6.3-8.2)
--- NOTE | 2020-06-13 10:32 | CT ---
EXAMINATION TYPE: CT abdomen pelvis w con DATE OF EXAM: 06/13/2020 COMPARISON: CT abdomen and pelvis 5 days ago HISTORY: Vomiting post appendectomy x5 days ago CT DLP: 699.3 mGycm, Automated Exposure Control for Dose Reduction was Utilized. CONTRAST: CT scan of the abdomen and pelvis is performed with oral and with IV Contrast, patient injected with 100 mL of Isovue 300. FINDINGS: LUNG BASES: New small to tiny bilateral pleural effusions with associated left basilar compressive at electasis and posterior bibasilar linear atelectasis. LIVER/GB: Visualized liver is heterogeneously hypodense consistent with diffuse fatty infiltration. S ize stable and upper limits of normal. PANCREAS: No significant abnormality is seen. SPLEEN: Mild Splenomegaly redemonstrated measuring 14.6 cm long axis axial image 20. ADRENALS: No significant abnormality is seen. KIDNEYS: No significant abnormality is seen. BOWEL: Suboptimal evaluation without enteric contrast. No suspicious dilatation of stomach or duodena l sweep. There are prominent and abnormally dilated small bowel loops with multiple air-fluid levels particularly most prominent in the left upper to mid abdomen. Small bowel loops dilated up to 4.9 cm. Surgical sutures from appendectomy now seen at base of cecum in the right lower quadrant. Colon part icularly distal transverse and left colon are poorly distended. Few scattered air-fluid levels in the right-sided colon and proximal transverse colon. Terminal ileum shows mild wall thickening and mucos al enhancement. Proximal to this there is slight fluid-filled distal ileal loops. There is small to m oderate amount of free fluid in the pelvis. Small bowel loop in the left mid abdomen shows poor diste ntion with moderate wall thickening and mild mucosal enhancement for reference coronal image 24. PROSTATE/SEMINAL VESICLES: No gross abnormality seen. LYMPH NODES: No greater than 1cm abdominal or pelvic lymph nodes are appreciated. OSSEOUS STRUCTURES: No significant abnormality is seen. OTHER: No significant additional abnormality is seen. IMPRESSION: Nonspecific bowel findings as detailed above. I favor postoperative ileus but cannot excl ude areas of multifocal areas of enterocolitis particularly involving small bowel loops. I cannot ent irely exclude a partial mid small bowel obstruction. Follow-up abdominal x-rays and/or CT imaging may be beneficial.
[2020-06-13 10:50] LABS: Amorphous Sediment,Urine Occasional /hpf; Appearance,Urine Cloudy (Clear); Bilirubin,Urine Negative (Negative); Blood,Urine Negative (Negative); Color,Urine Yellow; Glucose,Urine (UA) Negative (Negative); Ketones,Urine Negative (Negative); Leukocyte Esterase,Urine Negative (Negative); Mucus,Urine Rare /hpf; Nitrite,Urine Negative (Negative); PH, Urine 6.5 (5.0-8.0); Protein,Urine Negative (Negative); RBC,Urine <1 /hpf (0-5); Specific Gravity,Urine 1.017 (1.001-1.035); Urobilinogen,Urine <2.0 mg/dL (<2.0); WBC,Urine 3 /hpf (0-5)
[2020-06-13] MEDS ORDERED: ONDANSETRON 4 MG/2 ML VIAL IVP PRN (11:26)
[2020-06-13] MEDS ORDERED: NALOXONE 0.4 MG/ML 1 ML VIAL IV PRN (11:26)
[2020-06-13] MEDS: SODIUM CHLORIDE 0.9% 1,000 ML IV SCH (12:08)
[2020-06-13 14:04] VITALS: BMI 27.9
--- NOTE | 2020-06-13 14:21 | P.GSHP ---
<Lacy Alexander - Last Filed: 06/13/20 14:09> History of Present Illness H&P Date: 06/13/20 CHIEF COMPLAINT: Nausea and vomiting HISTORY OF PRESENT ILLNESS: This is a 24-year-old who was recently hospitalized for ruptured appendicitis with peritonitis and is status post laparoscopic appendectomy on 06/08/2020. He was discharged on 06/11/2020. Patient states at the time of discharge she had been feeling well. But at home he started to have intermittent nausea and vomiting especially after taking the antibiotics. He reports every time he took the medications he vomited the pills as well as bile- like emesis. He's had poor appetite. The night before he was able to tolerate chicken noodle soup. However, again this morning he was vomiting and became concerned. His mother reached out to Dr. Rivera's office and was informed to have patient come into the ER. Patient reports only minimal amount of pain mostly at the incision sites. He does report the pain about a 3 out of 10. He has only been needing his pain medication at night to sleep. He denies any fever, chills or sweats. Patient had computed tomography scan of the abdomen and pelvis reported nonspecific bowel findings. Favor postoperative ileus but cannot exclude areas of multifocal areas of the enterocolitis particularly involving small bowel loops. Cannot entirely exclude a partial mid small bowel obstruction. Patient does report having bowel movements. He reports them as loose and brown. He is passing gas. Denies any difficulty with urinating. PAST MEDICAL HISTORY: See list. PAST SURGICAL HISTORY: See list. MEDICATIONS: See list. ALLERGIES: See list. SOCIAL HISTORY: No illicit drug use. REVIEW OF SYSTEMS: CONSTITUTIONAL: Denies fever or chills. HEENT: Denies blurred vision, vision changes, or eye pain. Denies hemoptysis CARDIOVASCULAR: Denies chest pain or pressure. RESPIRATORY: No shortness of breath. GASTROINTESTINAL: See HPI for pertinent findings HEMATOLOGIC: Denies bleeding disorders. GENITOURINARY: Denies any blood in urine or increased urinary frequency. SKIN: Denies pruitis. Denies rash. PHYSICAL EXAM: VITAL SIGNS: Reviewed GENERAL: Well-developed in no acute distress. HEENT: No sclera icterus. Extraocular movements grossly intact. Moist buccal mucosa. Head is atraumatic, normocephalic. No nasal drainage. ABDOMEN: Soft. Mildly distended. Nontender. Incision sites clean dry and intact NEUROLOGIC: Alert and oriented. Cranial nerves II through XII grossly intact. LABORATORY DATA: WBC 13.0 hemoglobin 15.0 creatinine 0.81 potassium 3.8 sodium 139 lactic 0.8 total bili 0.7 AST 107 ALT 112 alk phos 76 Covid not detected IMAGING: computed tomography scan of the abdomen and pelvis reported nonspecific bowel findings. Favor postoperative ileus but cannot exclude areas of multifocal areas of the enterocolitis particularly involving small bowel loops. Cannot entirely exclude a partial mid small bowel obstruction. ASSESSMENT: 1. Postoperative ileus 2. Intermittent nausea and vomiting 3. Elevated LFTs, we'll monitor 4. Ruptured appendicitis with peritonitis status post laparoscopic appendectomy on 06/08/2020 PLAN: -Start patient on a clear liquid diet -Continue IV fluids -Consult Dr. Ramos for antibiotic recommendations -Start patient on Levaquin and Flagyl -Add Reglan for nausea -GI prophylaxis Protonix and DVT prophylaxis subcu heparin Physician Loss Control Engineer note has been reviewed by physician. Signing provider agrees with the documented findings, assessment, and plan of care. Past Medical History Past Medical History: No Reported History Additional Past Medical History / Comment(s): 06/08/20 ruptured appendix with surgery, ear infections as a child. History of Any Multi-Drug Resistant Organisms: None Reported Past Surgical History: Appendectomy Additional Past Surgical History / Comment(s): 06/08/20 lap appy Past Anesthesia/Blood Transfusion Reactions: No Reported Reaction Smoking Status: Never smoker - Past Family History Father Family Medical History: No Reported History Additional Family Medical History / Comment(s): Father is healthy Mother Family Medical History: No Reported History Additional Family Medical History / Comment(s): Mother is healthy Medications and Allergies Home Medications Medication Instructions Recorded Confirmed Type Ciprofloxacin HCl [Cipro] 500 mg PO Q12HR 10 Days #20 tab 06/11/20 06/13/20 Rx Docusate [Colace] 100 mg PO BID #30 capsule 06/11/20 06/13/20 Rx HYDROcodone/APAP 5-325MG [[place] 1 tab PO Q6HR PRN 3 Days #12 tab 06/11/20 06/13/20 Rx 5-325] metroNIDAZOLE [Flagyl] 500 mg PO TID #30 tab 06/11/20 06/13/20 Rx Allergies Allergy/AdvReac Type Severity Reaction Status Date / Time No Known Allergies Allergy Verified 06/13/20 09:59 Surgical - Exam Vital Signs Temp Pulse Resp BP Pulse Ox 98.5 F 86 18 134/80 96 06/13/20 08:47 06/13/20 08:47 06/13/20 08:47 06/13/20 08:47 06/13/20 08:47 Results - Labs 06/13/20 09:11 06/13/20 09:11 Abnormal Lab Results - Last 24 Hours (Table) 06/13/20 06/13/20 06/13/20 Range/Units 09:11 09:11 10:37 WBC 13.0 H (3.8-10.6) k/uL Neutrophils # 10.2 H (1.3-7.7) k/uL Glucose 110 H (74-99) mg/dL AST 107 H (17-59) U/L ALT 112 H (4-49) U/L Amorphous Sediment Occasional H (None) /hpf Urine Mucus Rare H (None) /hpf Diabetes panel 06/13/20 Range/Units 09:11 Sodium 139 (137-145) mmol/L Potassium 3.8 (3.5-5.1) mmol/L Chloride 104 (98-107) mmol/L Carbon Dioxide 24 (22-30) mmol/L BUN 13 (9-20) mg/dL Creatinine 0.81 (0.66-1.25) mg/dL Glucose 110 H (74-99) mg/dL Calcium 9.5 (8.4-10.2) mg/dL AST 107 H (17-59) U/L ALT 112 H (4-49) U/L Alkaline Phosphatase 76 (38-126) U/L Total Protein 6.9 (6.3-8.2) g/dL Albumin 3.9 (3.5-5.0) g/dL Calcium panel 06/13/20 Range/Units 09:11 Calcium 9.5 (8.4-10.2) mg/dL Albumin 3.9 (3.5-5.0) g/dL Pituitary panel 06/13/20 Range/Units 09:11 Sodium 139 (137-145) mmol/L Potassium 3.8 (3.5-5.1) mmol/L Chloride 104 (98-107) mmol/L Carbon Dioxide 24 (22-30) mmol/L BUN 13 (9-20) mg/dL Creatinine 0.81 (0.66-1.25) mg/dL Glucose 110 H (74-99) mg/dL Calcium 9.5 (8.4-10.2) mg/dL Adrenal panel 06/13/20 Range/Units 09:11 Sodium 139 (137-145) mmol/L Potassium 3.8 (3.5-5.1) mmol/L Chloride 104 (98-107) mmol/L Carbon Dioxide 24 (22-30) mmol/L BUN 13 (9-20) mg/dL Creatinine 0.81 (0.66-1.25) mg/dL Glucose 110 H (74-99) mg/dL Calcium 9.5 (8.4-10.2) mg/dL Total Bilirubin 0.7 (0.2-1.3) mg/dL AST 107 H (17-59) U/L ALT 112 H (4-49) U/L Alkaline Phosphatase 76 (38-126) U/L Total Protein 6.9 (6.3-8.2) g/dL Albumin 3.9 (3.5-5.0) g/dL <Davin Rivera - Last Filed: 06/13/20 14:23> History of Present Illness As above. Suspect ileus and also intolerance of Flagyl orally. We'll consult infectious disease for antibiotic modification. Begin clear liquids. Continue IV hydration. Continue anti-emetics. Spoke with mother by phone. Surgical - Exam Vital Signs Temp Pulse Resp BP Pulse Ox 98.5 F 86 18 134/80 96 06/13/20 08:47 06/13/20 08:47 06/13/20 08:47 06/13/20 08:47 06/13/20 08:47 Results - Labs 06/13/20 09:11 06/13/20 09:11 Abnormal Lab Results - Last 24 Hours (Table) 06/13/20 06/13/20 06/13/20 Range/Units 09:11 09:11 10:37 WBC 13.0 H (3.8-10.6) k/uL Neutrophils # 10.2 H (1.3-7.7) k/uL Glucose 110 H (74-99) mg/dL AST 107 H (17-59) U/L ALT 112 H (4-49) U/L Amorphous Sediment Occasional H (None) /hpf Urine Mucus Rare H (None) /hpf Diabetes panel 06/13/20 Range/Units 09:11 Sodium 139 (137-145) mmol/L Potassium 3.8 (3.5-5.1) mmol/L Chloride 104 (98-107) mmol/L Carbon Dioxide 24 (22-30) mmol/L BUN 13 (9-20) mg/dL Creatinine 0.81 (0.66-1.25) mg/dL Glucose 110 H (74-99) mg/dL Calcium 9.5 (8.4-10.2) mg/dL AST 107 H (17-59) U/L ALT 112 H (4-49) U/L Alkaline Phosphatase 76 (38-126) U/L Total Protein 6.9 (6.3-8.2) g/dL Albumin 3.9 (3.5-5.0) g/dL Calcium panel 06/13/20 Range/Units 09:11 Calcium 9.5 (8.4-10.2) mg/dL Albumin 3.9 (3.5-5.0) g/dL Pituitary panel 06/13/20 Range/Units 09:11 Sodium 139 (137-145) mmol/L Potassium 3.8 (3.5-5.1) mmol/L Chloride 104 (98-107) mmol/L Carbon Dioxide 24 (22-30) mmol/L BUN 13 (9-20) mg/dL Creatinine 0.81 (0.66-1.25) mg/dL Glucose 110 H (74-99) mg/dL Calcium 9.5 (8.4-10.2) mg/dL Adrenal panel 06/13/20 Range/Units 09:11 Sodium 139 (137-145) mmol/L Potassium 3.8 (3.5-5.1) mmol/L Chloride 104 (98-107) mmol/L Carbon Dioxide 24 (22-30) mmol/L BUN 13 (9-20) mg/dL Creatinine 0.81 (0.66-1.25) mg/dL Glucose 110 H (74-99) mg/dL Calcium 9.5 (8.4-10.2) mg/dL Total Bilirubin 0.7 (0.2-1.3) mg/dL AST 107 H (17-59) U/L ALT 112 H (4-49) U/L Alkaline Phosphatase 76 (38-126) U/L Total Protein 6.9 (6.3-8.2) g/dL Albumin 3.9 (3.5-5.0) g/dL
[2020-06-13] MEDS: PANTOPRAZOLE 40 MG/10 ML VIAL IVP SCH (14:55)
[2020-06-13] MEDS ORDERED: metroNIDAZOLE-NS PMX 500 MG in SALINE 1 100ML.BAG IVPB SCH (16:00)
[2020-06-13] MEDS ORDERED: LEVOFLOXACIN 500MG-D5W PMX 500 MG in DEXTROSE/WATER 1 100ML.BAG IVPB SCH (16:00)
[2020-06-13] MEDS: METOCLOPRAMIDE 5 MG/ML 2 ML VIAL IVP SCH ×2 (17:44→22:50)
[2020-06-13] MEDS: HEPARIN SODIUM,PORCINE 5,000 UNIT/ML 1 ML VIAL SQ SCH (19:30)
[2020-06-13] MEDS: AMPICILLIN-SULBACTAM 3 GM in SODIUM CHLORIDE 0.9% 100 ML IVPB SCH (22:55)
--- NOTE | 2020-06-13 23:16 | CONS ---
CONSULTATION DATE OF SERVICE: 06/13/2020. REASON FOR CONSULTATION: Antibiotic management. HISTORY OF PRESENT ILLNESS: The patient is a 24-year-old male who was recently admitted to this facility with a perforated appendicitis in this patient who is status post laparoscopic appendectomy. Abdominal culture positive for E. coli which is sensitive pathogen. The patient was discharged home on June 11, on oral Cipro, Flagyl. The patient is now presenting back to [facility] ER with concern for intermittent nausea and vomiting especially after taking his antibiotics. The patient mentioned he was able to take his liquid. The patient also complaining of some abdominal pain mostly lower abdominal area, intensity about 3 out of 10. Mostly dull aching, not sharp and denies having any diarrhea. Though does have bowel movements. With these symptoms, the patient was evaluated by the ER physician. On arrival to the ER, the patient has been afebrile. The patient did have white count 13,000 with a left shift. Urine has been negative. The patient did have a CT of abdomen and pelvis with evidence of postoperative ileus, cannot exclude areas of multifocal use of enterocolitis. The patient has been admitted to hospital. The patient was started on IV Levaquin and Flagyl. Infectious Disease was consulted for further management for antibiotic therapy. REVIEW OF SYSTEMS: Positive points have been mentioned in HPI. Rest of systems are negative. PAST MEDICAL HISTORY: Perforated appendicitis and secondary peritonitis with abdominal abscess. PAST SURGICAL HISTORY: Appendectomy and drainage of the abscess. SOCIAL HISTORY: Denies smoking, drinking or drug use. FAMILY HISTORY: No pertinent findings noticed. ALLERGIES: No known drug allergies. MEDICATIONS: Include the patient is currently on Levaquin, Flagyl, heparin, Reglan, Narcan, Zofran, Protonix. PHYSICAL EXAMINATION: Blood pressure is 128/73 with a pulse of 72, temperature 97.8. He is 97% on room air. General description is a young male lying in bed in no distress. No tachypnea or accessory muscles of respiration use. HEENT: Examination shows no pallor or scleral icterus. Oral mucous membranes dry. No pharyngeal erythema or thrush. NECK: Trachea central. No thyromegaly. LUNGS: Unlabored breathing. Clear to auscultation anteriorly with no wheeze or crackles. HEART S1, S2. Regular rate and rhythm. No added sounds. ABDOMEN: Soft, no tenderness. No guarding. No rigidity. EXTREMITIES: No edema of the feet. SKIN examination: No rash or mass palpable. NEUROLOGICAL: Patient is awake, alert, and oriented times three. Mood and affect normal. LABS: Hemoglobin is 15.5, white count 13.0, BUN of 13, creatinine 0.81. Urine has been negative. CT report mentioned above. DIAGNOSTIC IMPRESSION AND PLAN: Patient admitted to the hospital with nausea and vomiting in this patient with symptoms have been mostly with taking his antibiotic as the patient mentioned he was able to take clear liquids and could be related more likely to his antibiotic side effects. However, CT did show evidence of ileus and possible colitis in this patient who did have mild elevated white count, though no fever. PLAN: 1. We will discontinue Levaquin and Flagyl. 2. Start the patient on Unasyn 3 g q.6h. May be transitioned to Augmentin once the patient GI symptoms improved. 3. We will follow up on clinical condition to further adjust medication if needed. Thank you for this consultation. We will follow this patient along with you. MMODL / IJN: [id number] /
[2020-06-14] MEDS: SODIUM CHLORIDE 0.9% 1,000 ML IV SCH (04:14)
[2020-06-14] MEDS: METOCLOPRAMIDE 5 MG/ML 2 ML VIAL IVP SCH (05:04)
[2020-06-14] MEDS: AMPICILLIN-SULBACTAM 3 GM in SODIUM CHLORIDE 0.9% 100 ML IVPB SCH (05:04)
[2020-06-14 06:22] LABS: Basophils # (A) 0.1 k/uL (0-0.2); Basophils % (A) 1 %; Eosinophils # (A) 0.4 k/uL (0-0.7); Eosinophils % (A) 4 %; HCT 41.9 % (39.0-53.0); HGB 14.3 gm/dL (13.0-17.5); Lymphocytes # (A) 1.6 k/uL (1.0-4.8); Lymphocytes % (A) 15 %; MCH 29.6 pg (25.0-35.0); MCHC 34.1 g/dL (31.0-37.0); MCV 86.8 fL (80.0-100.0); Mean Platelet Volume 7.1; Monocytes # (A) 0.8 k/uL (0-1.0); Monocytes % (A) 7 %; Neutrophils # (A) 7.9 k/uL (1.3-7.7); Neutrophils % (A) 71 %; Platelet Count 280 k/uL (150-450); RBC 4.83 m/uL (4.30-5.90); RDW 13.2 % (11.5-15.5); WBC 11.2 k/uL (3.8-10.6)
[2020-06-14 07:46] VITALS: BP 136/80; PULSE 78; RESP 18; TEMP 98.6
--- NOTE | 2020-06-14 08:31 | XR ---
2 view abdomen HISTORY: Ileus 2 views the abdomen on 3 images correlated prior exams 06/13/2020 There are distended loops of small bowel. No evident pneumoperitoneum. Bone mineralization is normal. Lung bases are clear. No evident pathologic calcification. Bowel suture noted in the right lower tevin drant. Air-fluid levels are noted. IMPRESSION: Correlate for bowel obstruction, ileus.
[2020-06-14 09:43] LABS: Albumin 4.3 g/dL (3.80-4.90); Albumin/Globulin Ratio 2.26 (1.60-3.17); BUN/Creat Ratio 14.44 Ratio (12.00-20.00); Calcium 9.2 mg/dL (8.7-10.3); Globulin 1.9 g/dL (1.6-3.3); Non-African American GFR(CKD) 120.8 (60.0-200.0); Potassium 3.7 mmol/L (3.5-5.5); Total Bilirubin 0.4 mg/dL (0.3-1.2); Total Protein 6.2 g/dL (6.2-8.2)
[2020-06-14] MEDS: HEPARIN SODIUM,PORCINE 5,000 UNIT/ML 1 ML VIAL SQ SCH (10:06)
[2020-06-14] MEDS: PANTOPRAZOLE 40 MG/10 ML VIAL IVP SCH (10:07)
--- NOTE | 2020-06-14 10:55 | P.PN ---
Progress Note - Text Progress Note Date: 06/14/20 Patient feels better. He's had multiple bowel movements. On exam vital signs are stable. Abdomen soft. Resolving ileus. Patient be discharged home today.
--- NOTE | 2020-06-14 11:30 | P.CONS ---
History of Present Illness - Reason for Consult Leukocytosis, elevated liver enzymes - History of Present Illness 24-year-old who was recently hospitalized for ruptured appendicitis with peritonitis and is status post laparoscopic appendectomy on 06/08/2020. He was discharged on 06/11/2020. Patient states at the time of discharge she had been feeling well. But at home he started to have intermittent nausea and vomiting especially after taking the antibiotics. He reports every time he took the medications he vomited the pills as well as bile-like emesis. He's had poor appetite. The night before he was able to tolerate chicken noodle soup. However, again this morning he was vomiting and became concerned. His mother reached out to Dr. Rivera's office and was informed to have patient come into the ER. Patient reports only minimal amount of pain mostly at the incision sites. He does report the pain about a 3 out of 10. He has only been needing his pain medication at night to sleep. He denies any fever, chills or sweats. Patient had computed tomography scan of the abdomen and pelvis reported nonspecific bowel findings. Favor postoperative ileus but cannot exclude areas of multifoca l areas of the enterocolitis particularly involving small bowel loops. Cannot entirely exclude a partial mid small bowel obstruction. Patient does report having bowel movements. He reports them as loose and brown. He is passing gas. Denies any difficulty with urinating. He doesn't have any fever chills. Patient's nausea vomiting resolved. Patient is able to tolerate diet today. Patient did move his bowels today. Patient is presently on Unasyn. We'll repeat liver enzymes as an outpatient again. Review of Systems REVIEW OF SYSTEMS: CONSTITUTIONAL: No fever, no malaise, no fatigue. HEENT: No recent visual problems or hearing problems. Denied any sore throat. CARDIOVASCULAR: No chest pain, orthopnea, PND, no palpitations, no syncope. PULMONARY: No shortness of breath, no cough, no hemoptysis. GASTROINTESTINAL: As mentioned in HPI NEUROLOGICAL: No headaches, no weakness, no numbness. HEMATOLOGICAL: Denies any bleeding or petechiae. GENITOURINARY: Denies any burning micturition, frequency, or urgency. MUSCULOSKELETAL/RHEUMATOLOGICAL: Denies any joint pain, swelling, or any muscle pain. ENDOCRINE: Denies any polyuria or polydipsia. The rest of the 14-point review of systems is negative. Past Medical History Past Medical History: No Reported History Additional Past Medical History / Comment(s): 06/08/20 ruptured appendix with surgery, ear infections as a child. History of Any Multi-Drug Resistant Organisms: None Reported Past Surgical History: Appendectomy Additional Past Surgical History / Comment(s): 06/08/20 lap appy Past Anesthesia/Blood Transfusion Reactions: No Reported Reaction Smoking Status: Never smoker - Past Family History Father Family Medical History: No Reported History Additional Family Medical History / Comment(s): Father is healthy Mother Family Medical History: No Reported History Additional Family Medical History / Comment(s): Mother is healthy Medications and Allergies Home Medications Medication Instructions Recorded Confirmed Type Ciprofloxacin HCl [Cipro] 500 mg PO Q12HR 10 Days #20 tab 06/11/20 06/13/20 Rx Docusate [Colace] 100 mg PO BID #30 capsule 06/11/20 06/13/20 Rx HYDROcodone/APAP 5-325MG [[place] 1 tab PO Q6HR PRN 3 Days #12 tab 06/11/20 06/13/20 Rx 5-325] metroNIDAZOLE [Flagyl] 500 mg PO TID #30 tab 06/11/20 06/13/20 Rx Amoxicillin/Potassium Clav 1 tab PO Q12HR 7 Days #14 tab 06/14/20 Rx [Augmentin 875-125 Tablet] Allergies Allergy/AdvReac Type Severity Reaction Status Date / Time No Known Allergies Allergy Verified 06/13/20 09:59 Physical Exam Vitals: Vital Signs Temp Pulse Pulse Resp BP BP Pulse Ox 06/14/20 07:46 98.6 F 78 18 136/80 97 06/14/20 01:46 98.5 F 67 17 128/62 97 06/13/20 19:32 97.8 F 72 17 128/73 97 06/13/20 14:00 98.3 F 71 17 135/77 96 06/13/20 12:15 98.6 F 77 18 149/86 98 Intake and Output 06/13/20 06/14/20 06/14/20 22:59 06:59 14:59 Intake Total 240 720 Balance 240 720 Intake: Intake, IV Titration 720 Amount Sodium Chloride 0.9% 1, 720 000 ml @ 60 mls/hr IV . [id number] [facility] Rx#:[id number] Oral 240 Other: # Voids 1 2 # Bowel Movements 1 2 PHYSICAL EXAMINATION: GENERAL: The patient is alert and oriented x3, not in any acute distress. Well developed, well nourished. HEENT: Pupils are round and equally reacting to light. EOMI. No scleral icterus. No conjunctival pallor. Normocephalic, atraumatic. No pharyngeal erythema. No thyromegaly. CARDIOVASCULAR: S1 and S2 present. No murmurs, rubs, or gallops. PULMONARY: Chest is clear to auscultation, no wheezing or crackles. ABDOMEN: Soft, nontender, nondistended, normoactive bowel sounds. No palpable organomegaly. MUSCULOSKELETAL: No joint swelling or deformity. EXTREMITIES: No cyanosis, clubbing, or pedal edema. NEUROLOGICAL: Gross neurological examination did not reveal any focal deficits. SKIN: No rashes. Results CBC & Chem 7: 06/14/20 05:30 06/14/20 05:30 Labs: Abnormal Lab Results - Last 24 Hours (Table) 06/14/20 06/14/20 Range/Units 05:30 05:30 WBC 11.2 H (3.8-10.6) k/uL Neutrophils # 7.9 H (1.3-7.7) k/uL AST 109 H (14-35) U/L ALT 145 H (10-49) U/L Assessment and Plan Plan: -Nausea vomiting which was believed to be symmetrical postoperative ileus but can be related to his metronidazole as well this is being discontinued and patient is being discharged on Augmentin -Mildly elevated liver enzymes we'll repeat liver enzymes if they continue to be elevated then [place] need to be discontinued at the time -Patient is postoperative appendectomy recently on 06/08/2020 Patient can be discharged from medical perspective with repeat the basic compressive metabolic profile
== END 2020-06-14 11:45 | disposition home or self-care (01) ==
LOC: EC 08:40 → 6NMEDSUR 11:28
PROVIDERS: ADMIT Surgery; ATTEND Surgery
DX: K56.7 Ileus, unspecified (principal); K91.89 Other postprocedural complications and disorders of digestive system; Z90.49 Acquired absence of other specified parts of digestive tract; R79.89 Other specified abnormal findings of blood chemistry; D72.829 Elevated white blood cell count, unspecified; R74.8 Abnormal levels of other serum enzymes; Z20.822 Contact with and (suspected) exposure to COVID-19
CPT/HCPCS: 96376 ×2; 96365; 96366; 96367; 96372; 96375; 96361; 99285; 36415; 80053 ×2; 83605; 85025 ×2; 81001; 87635; 74018; 74019; 74177; G0378 ×2; J1644; J2765 ×2; J0696; J0295 ×2; C9113 ×2; Q9967

== ENCOUNTER → 2020-06-16 | Outpatient (CLI) | payer BC ==
[2020-06-16 11:33] LABS: African American GFR (CKD) 123.3 (60.0-200.0); Albumin 4.8 g/dL (3.80-4.90); Albumin/Globulin Ratio 2.09 (1.60-3.17); Anion Gap 9.7 mmol/L (4.00-12.00); Calcium 9.5 mg/dL (8.7-10.3); Carbon Dioxide 25.3 mmol/L (21.6-31.8); Globulin 2.3 g/dL (1.6-3.3); Non-African American GFR(CKD) 106.4 (60.0-200.0); Potassium 4.3 mmol/L (3.5-5.5); Total Bilirubin 0.5 mg/dL (0.3-1.2); Total Protein 7.1 g/dL (6.2-8.2)
== END | disposition home or self-care (01) ==
LOC: LABWHC1 07:26
PROVIDERS: ATTEND Internal Medicine
DX: R74.8 Abnormal levels of other serum enzymes (principal)
CPT/HCPCS: 36415; 80053

== ENCOUNTER 2022-08-28 11:47 | Emergency (ER) | payer BC, OTHER ==
[2022-08-28] MEDS ORDERED: DIPH,PERTUS(ACELL)TETVAC-LF 0.5 ML VIAL IM ONE (11:57)
[2022-08-28 11:59] VITALS: BP 154/92; PULSE 115; RESP 16; TEMP 99.7
--- NOTE | 2022-08-28 12:00 | ED ---
General Adult HPI - General Stated complaint: Fall Time Seen by Provider: 08/28/22 11:51 Source: patient, EMS, RN notes reviewed Mode of arrival: EMS Limitations: altered mental status - History of Present Illness Initial comments: Patient is a pleasant 26-year-old male presenting to the emergency department following fall. Patient was on a roof when he fell between 10 and 12 feet. Patient does not recall the episode. Patient only complains of mild discomfort right cheek. Unclear if there was loss of consciousness. Patient denies neck or back pain. Patient denies chest or abdominal pain. No dyspnea. Patient states discomfort is only mild. Unclear last tetanus immunization. - Related Data Previous Rx's Medication Instructions Recorded Docusate [Colace] 100 mg PO BID #30 capsule 06/11/20 HYDROcodone/APAP 5-325MG [[place] 1 tab PO Q6HR PRN 3 Days #12 tab 06/11/20 5-325] Amoxicillin/Potassium Clav 1 tab PO Q12HR 7 Days #14 tab 06/14/20 [Augmentin 875-125 Tablet] Allergies Allergy/AdvReac Type Severity Reaction Status Date / Time No Known Allergies Allergy Verified 08/28/22 11:59 Review of Systems ROS Statement: Those systems with pertinent positive or pertinent negative responses have been documented in the HPI. ROS Other: All systems not noted in ROS Statement are negative. Constitutional: Denies: fever Eyes: Denies: eye pain ENT: Reports: as per HPI Respiratory: Denies: cough, dyspnea Cardiovascular: Denies: chest pain Endocrine: Denies: fatigue Gastrointestinal: Denies: abdominal pain Genitourinary: Denies: dysuria Musculoskeletal: Denies: back pain Skin: Reports: other (Abrasions) Past Medical History Past Medical History: No Reported History Additional Past Medical History / Comment(s): 06/08/20 ruptured appendix with surgery, ear infections as a child. History of Any Multi-Drug Resistant Organisms: None Reported Past Surgical History: Appendectomy Additional Past Surgical History / Comment(s): 06/08/20 lap appy Past Anesthesia/Blood Transfusion Reactions: No Reported Reaction Smoking Status: Never smoker - Past Family History Father Family Medical History: No Reported History Additional Family Medical History / Comment(s): Father is healthy Mother Family Medical History: No Reported History Additional Family Medical History / Comment(s): Mother is healthy General Exam Limitations: no limitations General appearance: alert, in no apparent distress Head exam: Present: other (Soft tissue swelling right eyebrow region) Eye exam: Present: normal appearance, PERRL, EOMI ENT exam: Present: other (Mild right maxillary swelling and tenderness) Neck exam: Present: normal inspection. Absent: tenderness Respiratory exam: Present: normal lung sounds bilaterally Cardiovascular Exam: Present: regular rate, normal rhythm GI/Abdominal exam: Present: soft, other (Some abrasions are present). Absent: tenderness Extremities exam: Present: normal inspection, full ROM. Absent: tenderness Back exam: Present: normal inspection. Absent: tenderness, vertebral tenderness Neurological exam: Present: alert, CN II-XII intact. Absent: motor sensory deficit Expanded Neurological exam: Present: protecting the airway Patient oriented to: Present: person, place, time (Unclear if the year is 2222) Cranial nerves: EOM's Intact: Normal Motor strength exam: RUE: 5, LUE: 5, RLE: 5, LLE: 5 Eye Response: (4) open spontaneously Motor Response: (6) obeys commands Verbal Response: (5) oriented Psychiatric exam: Present: normal affect, normal mood Skin exam: Present: abrasion (Diffuse) Course Vital Signs 08/28/22 11:50 Temperature 99.7 F H Pulse Rate 115 H Respiratory 16 Rate Blood Pressure 154/92 O2 Sat by Pulse 96 Oximetry EKG Findings - EKG Results: EKG: interpreted by ERMD, sinus rhythm, normal axis, normal QRS, normal ST/T EKG shows: tachycardia Medical Decision Making - Medical Decision Making Was pt. sent in by a medical professional or institution (Dr. PA, BUSINESS EMPLOYMENT SPECIALIST, urgent care, hospital, or intermediate...) When possible be specific @ -[No] Did you speak to anyone other than the patient for history (EMS, parent, family, police, friend...)? What history was obtained from this source @ -EMS provides history of presentation as patient does not recall this Did you review nursing and triage notes (agree or disagree)? Why? @ -[I reviewed and agree with nursing and triage notes] Were old charts reviewed (outside hosp., previous admission, EMS record, old EKG, old radiological studies, urgent care reports/EKG's, intermediate records)? Report findings @ -[No old charts were reviewed] Differential Diagnosis (chest pain, altered mental status, abdominal pain women, abdominal pain men, vaginal bleeding, weakness, fever, dyspnea, syncope, headache, dizziness, GI bleed, back pain, seizure, CVA, palpatations, mental health)? @ -[not applicable] EKG interpreted by me (3pts min.). @ -[As above] X-rays interpreted by me (1pt min.). @ -Chest x-ray and pelvis x-ray shows no acute process. CT interpreted by me (1pt min.). @ -Reports reviewed. CT brain with epidural subdural and subarachnoid as well as parietal bone fracture U/S interpreted by me (1pt. min.). @ -[None done] What testing was considered but not performed or refused? (CT, X-rays, U/S, labs)? Why? @ -[None] What meds were considered but not given or refused? Why? @ -[None] Did you discuss the management of the patient with other professionals (professionals i.e. , PA, BUSINESS EMPLOYMENT SPECIALIST, lab, RT, psych nurse, bilingual social worker, military lawyer, teacher, signals officer, case folder)? Give summary @ -Case was discussed with trauma surgeon Dr. parker as well as Dr. Petersen, emergency physician at [facility] who will accept transfer. Was smoking cessation discussed for >3mins.? @ -[No] Was critical care preformed (if so, how long)? @ -32 minutes. Care time Were there social determinants of health that impacted care today? How? (Ho melessness, low income, unemployed, alcoholism, drug addiction, transportation, low edu. Level, literacy, decrease access to med. care, [facility], rehab)? @ -[No] Was there de-escalation of care discussed even if they declined (Discuss DNR or withdrawal of care, Hospice)? DNR status @ -[No] What co-morbidities impacted this encounter? (DM, HTN, Smoking, COPD, CAD, Cancer, CVA, ARF, Chemo, Hep., AIDS, mental health diagnosis, sleep apnea, morbid obesity)? @ -[None] Was patient admitted / discharged? Hospital course, mention meds given and route, prescriptions, significant lab abnormalities, going to OR and other pertinent info. @ -Patient has epidural, subdural and subarachnoid hemorrhage with right parietal fracture and right lower lobe pulmonary contusion. Patient remains alert and neurologically intact. Patient does have some repetitive questioning per nursing staff. Patient did have an episode of emesis and was given Zofran as well as pain medications. Patient was transferred for neurological care. EMS has been notified for a green party one transfer Undiagnosed new problem with uncertain prognosis? @ -[No] Drug Therapy requiring intensive monitoring for toxicity (Heparin, Nitro, Insulin, Cardizem)? @ -[No] Were any procedures done? @ -[No] Diagnosis/symptom? @ -Epidural hemorrhage, subdural hemorrhage, subarachnoid hemorrhage, parietal bone fracture, pulmonary contusion Acute, or Chronic, or Acute on Chronic? @ -All acute Uncomplicated (without systemic symptoms) or Complicated (systemic symptoms)? @ -[default] Side effects of treatment? @ -[No] Exacerbation, Progression, or Severe Exacerbation? @ -[No] Poses a threat to life or bodily function? How? (Chest pain, [place], [place], pneumonia, PE, COPD, DKA, ARF, appy, cholecystitis, CVA, Diverticulitis, Homicidal, Suicidal, threat to staff... and all critical care pts) @ -There is threat to life and bodily function secondary to intercranial hemorrhage - Lab Data Result diagrams: 08/28/22 11:57 08/28/22 12:05 Lab Results 08/28/22 08/28/22 08/28/22 Range/Units 11:57 12:05 12:05 WBC 6.6 (3.8-10.6) k/uL RBC 5.74 (4.30-5.90) m/uL Hgb 17.2 (13.0-17.5) gm/dL Hct 48.3 (39.0-53.0) % MCV 84.1 (80.0-100.0) fL MCH 30.0 (25.0-35.0) pg MCHC 35.7 (31.0-37.0) g/dL RDW 13.3 (11.5-15.5) % Plt Count 262 (150-450) k/uL MPV 6.8 Neutrophils % 48 % Lymphocytes % 40 % Monocytes % 5 % Eosinophils % 3 % Basophils % 1 % Neutrophils # 3.2 (1.3-7.7) k/uL Lymphocytes # 2.7 (1.0-4.8) k/uL Monocytes # 0.3 (0-1.0) k/uL Eosinophils # 0.2 (0-0.7) k/uL Basophils # 0.1 (0-0.2) k/uL PT 10.2 (9.0-12.0) sec INR 1.0 (<1.2) APTT 22.1 (22.0-30.0) sec Sodium 142 (137-145) mmol/L Potassium 3.7 (3.5-5.1) mmol/L Chloride 104 (98-107) mmol/L Carbon Dioxide 26 (22-30) mmol/L Anion Gap 12 mmol/L BUN 19 (9-20) mg/dL Creatinine 1.09 (0.66-1.25) mg/dL Est GFR (CKD-EPI)AfAm >90 (>60 ml/min/1.73 sqM) Est GFR (CKD-EPI)NonAf >90 (>60 ml/min/1.73 sqM) Glucose 80 (74-99) mg/dL POC Glucose (mg/dL) (70-110) mg/dL POC Glu Punch Finisher ID Calcium 10.5 H (8.4-10.2) mg/dL Total Bilirubin 1.0 (0.2-1.3) mg/dL AST 110 H (17-59) U/L ALT 111 H (4-49) U/L Alkaline Phosphatase 66 (38-126) U/L Total Protein 8.4 H (6.3-8.2) g/dL Albumin 5.2 H (3.5-5.0) g/dL Serum Alcohol <10 mg/dL 08/28/22 Range/Units 12:05 WBC (3.8-10.6) k/uL RBC (4.30-5.90) m/uL Hgb (13.0-17.5) gm/dL Hct (39.0-53.0) % MCV (80.0-100.0) fL MCH (25.0-35.0) pg MCHC (31.0-37.0) g/dL RDW (11.5-15.5) % Plt Count (150-450) k/uL MPV Neutrophils % % Lymphocytes % % Monocytes % % Eosinophils % % Basophils % % Neutrophils # (1.3-7.7) k/uL Lymphocytes # (1.0-4.8) k/uL Monocytes # (0-1.0) k/uL Eosinophils # (0-0.7) k/uL Basophils # (0-0.2) k/uL PT (9.0-12.0) sec INR (<1.2) APTT (22.0-30.0) sec Sodium (137-145) mmol/L Potassium (3.5-5.1) mmol/L Chloride (98-107) mmol/L Carbon Dioxide (22-30) mmol/L Anion Gap mmol/L BUN (9-20) mg/dL Creatinine (0.66-1.25) mg/dL Est GFR (CKD-EPI)AfAm (>60 ml/min/1.73 sqM) Est GFR (CKD-EPI)NonAf (>60 ml/min/1.73 sqM) Glucose (74-99) mg/dL POC Glucose (mg/dL) 94 (70-110) mg/dL POC Glu Punch Finisher ID Jessenia Fragoso Calcium (8.4-10.2) mg/dL Total Bilirubin (0.2-1.3) mg/dL AST (17-59) U/L ALT (4-49) U/L Alkaline Phosphatase (38-126) U/L Total Protein (6.3-8.2) g/dL Albumin (3.5-5.0) g/dL Serum Alcohol mg/dL Critical Care Time Critical Care Time: Yes Total Critical Care Time: 32 Disposition Clinical Impression: Fall, Subdural hemorrhage, Epidural hemorrhage, Subarachnoid hemorrhage, F racture of parietal bone, Pulmonary contusion Disposition: OTHER INSTITUTION NOT DEFINED Is patient prescribed a controlled substance at d/c from ED?: No Referrals: None,Stated [Primary Care Provider] - 1-2 days Time of Disposition: 13:25 - Out of Hospital Transfer - Req. Specs Out of Hospital Transfer - Requested Specifics: Other Emergency Center
[2022-08-28 12:08] LABS: Glucose,Whole Blood 94 mg/dL (70-110)
--- NOTE | 2022-08-28 12:17 | XR ---
EXAMINATION TYPE: XR chest 1V portable DATE OF EXAM: 08/28/2022 12:13 PM COMPARISON: Chest radiographs from 06/10/2020 TECHNIQUE: XR chest 1V portable Frontal view of the chest. CLINICAL INDICATION:Male, 26 years old with history of trauma; FINDINGS: Lungs/Pleura: There is no evidence of pleural effusion, focal consolidation, or pneumothorax. Pulmonary vascularity: Unremarkable. Heart/mediastinum: Cardiomediastinal silhouette is unremarkable. Musculoskeletal: No acute osseous pathology. IMPRESSION: No acute cardiopulmonary disease/process.
--- NOTE | 2022-08-28 12:18 | XR ---
EXAMINATION TYPE: XR pelvis AP view DATE OF EXAM: 08/28/2022 12:13 PM INDICATION: Patient age:Male; 26 years old; Reason for study: Trauma; COMPARISON: 06/13/2020 CT TECHNIQUE: The pelvis was examined in a single projection. FINDINGS: There is no evidence of fracture or dislocation. There is no soft tissue abnormality. No a bnormal calcifications are present. The spine appears intact. IMPRESSION: No acute osseous pathology.
[2022-08-28 12:25] LABS: Basophils # (A) 0.1 k/uL (0-0.2); Basophils % (A) 1 %; Eosinophils # (A) 0.2 k/uL (0-0.7); Eosinophils % (A) 3 %; HCT 48.3 % (39.0-53.0); HGB 17.2 gm/dL (13.0-17.5); Lymphocytes # (A) 2.7 k/uL (1.0-4.8); Lymphocytes % (A) 40 %; MCHC 35.7 g/dL (31.0-37.0); MCV 84.1 fL (80.0-100.0); Mean Platelet Volume 6.8; Monocytes # (A) 0.3 k/uL (0-1.0); Monocytes % (A) 5 %; Neutrophils # (A) 3.2 k/uL (1.3-7.7); Neutrophils % (A) 48 %; Platelet Count 262 k/uL (150-450); RBC 5.74 m/uL (4.30-5.90); RDW 13.3 % (11.5-15.5); WBC 6.6 k/uL (3.8-10.6)
[2022-08-28 12:37] LABS: ALT 111 U/L (4-49); AST 110 U/L (17-59); African American GFR (CKD) >90 (>60 ml/min/1.73 sqM); Albumin 5.2 g/dL (3.5-5.0); Alcohol <10 mg/dL; Alkaline Phosphatase 66 U/L (38-126); Anion Gap 12 mmol/L; Blood Urea Nitrogen 19 mg/dL (9-20); Calcium 10.5 mg/dL (8.4-10.2); Carbon Dioxide 26 mmol/L (22-30); Chloride 104 mmol/L (98-107); Glucose 80 mg/dL (74-99); Non-African American GFR(CKD) >90 (>60 ml/min/1.73 sqM); Potassium 3.7 mmol/L (3.5-5.1); Sodium 142 mmol/L (137-145); Total Protein 8.4 g/dL (6.3-8.2)
[2022-08-28 12:43] LABS: Partial Thromboplastin Time 22.1 sec (22.0-30.0); Prothrombin Time 10.2 sec (9.0-12.0)
--- NOTE | 2022-08-28 12:46 | CT ---
EXAMINATION TYPE: CT brain cspine wo con CT DLP: 4390 mGycm, Automated exposure control for dose reduction was used. DATE OF EXAM: 08/28/2022 12:32 PM COMPARISON: None.. CLINICAL INDICATION:Male, 26 years old with history of trauma; pain after fall off roof. . PRIORITY 2 TECHNIQUE: Brain: Multiple axial CT images of the brain were obtained without IV contrast. Cspine: Axial CT images from the skull base to the inferior aspect of T2 we obtained without intraven ous contrast. Coronal and sagittal reformatted images were also reviewed. FINDINGS: Brain: Extra-axial spaces: Hyperdense blood demonstrated layering along the left tentorium and anterior infe rior falx consistent with subdural hematoma. Additionally there is subarachnoid hemorrhage within the left middle cranial fossa and a epidural hematoma within the right middle cranial fossa measuring up to 1.3 cm in thickness. Ventricular system: Within normal limits Cerebral parenchyma: Mild mass effect upon the right temporal lobe due to the epidural hematoma. The whitfield-white junction is well differentiated. Cerebellum: Unremarkable. Mass effect: No evidence of midline shift. Intracranial vasculature: unremarkable Soft tissues: Normal. Calvarium/osseous structures: Nondisplaced right parietal bone fracture extending towards the coronal suture. Paranasal sinuses and mastoid air cells: Mild scattered mucosal thickening and or secretions. Visualized orbits: Orbital contents are intact. Cervical spine: Fracture: None. Osseous structures: Unremarkable Vertebral alignment: Within normal limits. Spinal canal/Neural Foramina: No evidence of significant spinal canal narrowing. No evidence for sign ificant neural foraminal stenosis. Neck soft tissues: Prevertebral soft tissues are within normal limits. Other: The airway is patent. The lung apices are clear. IMPRESSION: 1. Right middle cranial fossa epidural hematoma with subdural hematoma along the left tentorium and anterior inferior falx. Additional subarachnoid hemorrhage within the left middle cranial fossa. No m idline shift. 2. Nondisplaced right parietal bone fracture. 3. No evidence of cervical spine fracture. Findings called to and discussed with Dr. Demetrius Marcelino at 12:43 PM on 08/28/2022.
[2022-08-28] MEDS ORDERED: ONDANSETRON 4 MG/2 ML VIAL IVP STA ×2 (12:56→13:42)
[2022-08-28] MEDS ORDERED: HYDROmorphone 0.5 MG/0.5 ML SYRINGE IVP STA (12:57)
--- NOTE | 2022-08-28 13:04 | CT ---
EXAMINATION TYPE: CT ChestAbdPelvis w con CT DLP: 4390 mGycm, Automated exposure control for dose reduction was used. DATE OF EXAM: 08/28/2022 12:33 PM COMPARISON: Chest radiograph from same day. CT abdomen pelvis 06/13/2020 CLINICAL INDICATION:Male, 26 years old with history of trauma; PHH, pain after fall off roof. . PRIOR ITY 2 Technique: Multiple axial images of the chest, abdomen, and pelvis were obtained following the intrav enous administration of 100 mL Isovue-300. Two-dimensional coronal and sagittal reconstructions were obtained. Findings: CHEST: LUNGS/ PLEURA: No pneumothorax or pleural effusion. Patchy groundglass opacity demonstrated within th e medial aspect of the right lower lobe (series 404, image 42). Bilateral lower lobe dependent subseg mental atelectasis. AIRWAY: Patent and unremarkable.. HEART: Size within normal limits. No pericardial effusion. MEDIASTINUM: No evidence of adenopathy. No mediastinal hematoma. VASCULATURE: No aortic aneurysm. MUSCULOSKELETAL: No acute osseous abnormalities. SOFT TISSUES/LYMPH NODES: Unremarkable. LOWER NECK: No significant findings. ABDOMEN: ABDOMEN LIVER: Diffusely hypoattenuating parenchyma. GALLBLADDER AND BILE DUCTS: Unremarkable. PANCREAS: Unremarkable. SPLEEN: Unremarkable. ADRENAL GLANDS: Unremarkable. KIDNEYS AND URETERS: No evidence of hydronephrosis or renal calculus. The ureters are unremarkable. PELVIS BLADDER: Unremarkable REPRODUCTIVE: Unremarkable. ABDOMEN & PELVIS STOMACH AND BOWEL: Stomach and duodenum are unremarkable focal wall thickening or surrounding inflamm atory changes. Postsurgical changes from appendectomy. No evidence of bowel obstruction. PERITONEUM: No evidence of pneumoperitoneum or free fluid. VASCULATURE: No evidence of aortic aneurysm. MUSCULOSKELETAL: No acute osseous abnormalities LYMPH NODES: No gross evidence for lymphadenopathy. SOFT TISSUE/ABDOMINAL WALL: Unremarkable IMPRESSION: 1. Patchy groundglass opacity demonstrated within the medial aspect of the right lower lobe which may represent atelectasis versus pulmonary contusion versus infectious/inflammatory process. 2. No evidence for traumatic process within the remaining portions of the chest, abdomen or pelvis.
--- NOTE | 2022-08-28 13:07 | CT ---
EXAMINATION TYPE: CT facial bones wo con CT DLP: 4390 mGycm, Automated exposure control for dose reduction was used. DATE OF EXAM: 08/28/2022 12:33 PM COMPARISON: CT brain of the same date. CLINICAL INDICATION:Male, 26 years old with history of trauma; PHH, pain after fall off roof. PRIORI TY 2 TECHNIQUE: Multiple unenhanced axial CT images were obtained of the facial bones soft tissue and bone windows. Coronal, axial and sagittal reformatted images were also provided in soft tissue and bone windows and submitted for interpretation. FINDINGS: Nondisplaced right parietal bone fracture with extension towards the coronal suture in on an earlier CT head. No other acute fracture identified. No dislocation. No significant soft tissue swelling. The orbits are intact. The temporal-mandibular joints appear symmetric. Mild mucosal thickening of the r ight ethmoid sinus and sphenoid sinus. Mastoid air cells are clear. Mild nasal septal deviation to th e right. IMPRESSION: 1. Nondisplaced right parietal bone fracture. 2. Mild sinus disease involving the right ethmoid and sphenoid sinuses.
[2022-08-28] MEDS ORDERED: HYDROmorphone 1 MG/ML 1 ML SYRINGE IVP STA (13:41)
[2022-08-28] MEDS ORDERED: METOCLOPRAMIDE 5 MG/ML 2 ML VIAL IVP STA (13:58)
== END 2022-08-28 14:05 | disposition other institution (70) ==
LOC: EC 11:47
DX: S06.5XAA Traumatic subdural hemorrhage with loss of consciousness status unknown, initial encounter (principal); S06.4XAA Epidural hemorrhage with loss of consciousness status unknown, initial encounter; S06.6XAA Traumatic subarachnoid hemorrhage with loss of consciousness status unknown, initial encounter; S02.0XXA Fracture of vault of skull, initial encounter for closed fracture; S27.329A Contusion of lung, unspecified, initial encounter; R40.2362 Coma scale, best motor response, obeys commands, at arrival to emergency department; R40.2142 Coma scale, eyes open, spontaneous, at arrival to emergency department; R40.2252 Coma scale, best verbal response, oriented, at arrival to emergency department; Z23 Encounter for immunization; W13.2XXA Fall from, out of or through roof, initial encounter
CPT/HCPCS: 99291; 96374; 96375 ×2; 96376 ×2; 90471; 36415; 86900; 86901; 80053; 85025; 85610; 85730; 86850; 86870; 86880; 80320; 72170; 71045; 72125; 70486; 70450; 71260; 74177; 90715; J2765; J2405; J1170 ×2; Q9967; 99285

== ENCOUNTER 2023-01-10 18:10 | Emergency (ER) | payer OTHER ==
[2023-01-10 18:33] VITALS: RESP 18; TEMP 98.7
--- NOTE | 2023-01-10 18:33 | ED ---
Head Injury HPI - General Source: patient, family, RN notes reviewed Mode of arrival: ambulatory Limitations: no limitations - History of Present Illness MD Complaint: head injury <Olivia Gray - Last Filed: 01/10/23 18:28> - History of Present Illness MD Complaint: head injury Onset/Timin -: hour(s) Mechanism of Injury: work related injury Location: parietal Loss of Consciousness: no Previous Trauma to this Area: No Place: work Radiation: none Severity: mild Quality: dull Consistency: constant Other Injuries: none Associated Symptoms: denies other symptoms <Mariano Raza - Last Filed: 01/10/23 19:48> - General Chief complaint: Head Injury Stated complaint: [facility], hit in head with PVC Pipe Time Seen by Provider: 01/10/23 18:30 - History of Present Illness Initial comments: This is a 27 year old male who presents to the emergency department for a head injury. He was hit in the back of the head with a PVC pipe at work earlier today. Denies any loss of consciousness. He does complain of a moderate headache. (Olivia Gray) - Related Data Previous Rx's Medication Instructions Recorded Docusate [Colace] 100 mg PO BID #30 capsule 06/11/20 HYDROcodone/APAP 5-325MG [[place] 1 tab PO Q6HR PRN 3 Days #12 tab 06/11/20 5-325] Amoxicillin/Potassium Clav 1 tab PO Q12HR 7 Days #14 tab 06/14/20 [Augmentin 875-125 Tablet] Allergies/Adverse reactions: Allergies Allergy/AdvReac Type Severity Reaction Status Date / Time No Known Allergies Allergy Verified 01/10/23 18:29 Review of Systems ROS Other: All systems not noted in ROS Statement are negative. <Olivia Gray - Last Filed: 01/10/23 18:28> ROS Other: All systems not noted in ROS Statement are negative. Constitutional: Denies: weakness Eyes: Denies: eye pain, vision change ENT: Denies: ear pain, hearing loss, epistaxis Respiratory: Denies: cough, dyspnea Cardiovascular: Denies: chest pain, palpitations, syncope Gastrointestinal: Denies: abdominal pain, nausea, vomiting Musculoskeletal: Denies: back pain Neurological: Reports: headache. Denies: weakness, numbness, paresthesias, confusion, abnormal gait, vertigo <RyMariano - Last Filed: 01/10/23 19:48> ROS Statement: Those systems with pertinent positive or pertinent negative responses have been documented in the HPI. Past Medical History Past Medical History: No Reported History Additional Past Medical History / Comment(s): 06/08/20 ruptured appendix with surgery, ear infections as a child. History of Any Multi-Drug Resistant Organisms: None Reported Past Surgical History: Appendectomy Additional Past Surgical History / Comment(s): 06/08/20 lap appy Past Anesthesia/Blood Transfusion Reactions: No Reported Reaction Smoking Status: Never smoker - Past Family History Father Family Medical History: No Reported History Additional Family Medical History / Comment(s): Father is healthy Mother Family Medical History: No Reported History Additional Family Medical History / Comment(s): Mother is healthy <Olivia Gray - Last Filed: 01/10/23 18:28> General Exam <Olivia Gray - Last Filed: 01/10/23 18:28> General appearance: alert, in no apparent distress Head exam: Present: atraumatic, normocephalic Eye exam: Present: normal appearance, PERRL, EOMI. Absent: scleral icterus, conjunctival injection ENT exam: Present: normal oropharynx, mucous membranes moist, TM's normal bilaterally, normal external ear exam Neck exam: Present: normal inspection, full ROM. Absent: tenderness Respiratory exam: Present: normal lung sounds bilaterally. Absent: respiratory distress, wheezes, rales, rhonchi, stridor Cardiovascular Exam: Present: regular rate, normal rhythm, normal heart sounds Neurological exam: Present: alert, oriented X3, CN II-XII intact. Absent: motor sensory deficit Skin exam: Present: warm, dry, intact, normal color. Absent: rash <RyMariano - Last Filed: 01/10/23 19:48> - General Exam Comments Initial Comments: Visual Physical Exam Vital signs reviewed General: Well-appearing, nontoxic, no acute distress. Head: Normocephalic, atraumatic Eyes: PERRLA, EOMI ENT: Airway patent Chest: Nonlabored breathing Skin: No visual rash, normal skin tone Neuro: Alert and oriented 3 Musculoskeletal: No gross abnormalities I performed the QuickNote portion of this chart. Signed Olivia Grya PA-C. (Olivia Gray) Course Vital Signs 01/10/23 18:30 Temperature 98.7 F Pulse Rate 114 H Respiratory 18 Rate Blood Pressure 133/84 O2 Sat by Pulse 96 Oximetry Disposition <Olivia Gray - Last Filed: 01/10/23 18:28> Is patient prescribed a controlled substance at d/c from ED?: No <Mariano Raza - Last Filed: 01/10/23 19:48> Clinical Impression: Contusion of scalp Disposition: HOME SELF-CARE Condition: Good Instructions (If sedation given, give patient instructions): Head Injury (ED) Referrals: None,Stated [Primary Care Provider] - 1-2 days
[2023-01-10 20:25] VITALS: BP 128/89; PULSE 96
== END 2023-01-10 20:25 | disposition home or self-care (01) ==
LOC: EC 18:10
DX: S00.03XA Contusion of scalp, initial encounter (principal); W22.8XXA Striking against or struck by other objects, initial encounter; Y99.0 Civilian activity done for income or pay
CPT/HCPCS: 99282

== ENCOUNTER → 2023-02-03 | Outpatient (CLI) | payer OTHER ==
--- NOTE | 2023-02-03 17:26 | US ---
EXAMINATION TYPE: US scrotum with doppler. Grayscale and color Doppler Duplex imaging performed of ashleigh hernandez scrotum. DATE OF EXAM: 02/03/2023 COMPARISON: NONE CLINICAL INDICATION: Male, 27 years old with history of N50.812 LEFT TESTICULAR PAIN; pain EXAM MEASUREMENTS: TESTICLES: Right Testicle: 5.1 x 2.3 x 3.3 cm Left Testicle: 5.0 x 2.7 x 3.1 cm EPIDIDYMIS HEAD: Right Epididymis: .7 x 1.0 x .7 cm Left Epididymis: .5 x 1.1 x .6 cm Doppler performed to assess for testicular vascularity; good bilateral color flow and waveforms are s een. There is no evidence of testicular torsion. Presence of hydroceles: Yes bilateral. Presence of varicoceles: no IMPRESSION: 1. Bilateral hydroceles. 2. Appropriate arterial and venous spectral waveforms to the testes. 3. No evidence for intratesticular mass.
== END | disposition home or self-care (01) ==
LOC: RADUSWWP 16:06
PROVIDERS: ATTEND Family Medicine
DX: N50.812 Left testicular pain (principal); N43.3 Hydrocele, unspecified
CPT/HCPCS: 76870; 93975

== ENCOUNTER 2023-03-22 12:09 | Emergency (ER) | payer OTHER ==
--- NOTE | 2023-03-22 15:31 | ED ---
General Adult HPI - General Chief complaint: Abdominal Pain Stated complaint: Abd Pain Time Seen by Provider: 03/22/23 15:18 Source: patient, RN notes reviewed Mode of arrival: ambulatory Limitations: no limitations - History of Present Illness Initial comments: Patient is a pleasant 27-year-old male presenting to the emergency department with concerns for right sided abdominal pain. 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 Patient states occasionally he does have some discomfort of the right side of the penis. Patient also states occasionally he has some urinary urgency. Patient states prior to arrival he had some right- sided abdominal discomfort with associated nausea. Patient questions if there could've been some discomfort in the back as well. Patient states symptoms are essentially resolved at this time and are very minimal. No history of similar symptoms previously. No fever. - Related Data Previous Rx's Medication Instructions Recorded Docusate [Colace] 100 mg PO BID #30 capsule 06/11/20 HYDROcodone/APAP 5-325MG [[place] 1 tab PO Q6HR PRN 3 Days #12 tab 06/11/20 5-325] Amoxicillin/Potassium Clav 1 tab PO Q12HR 7 Days #14 tab 06/14/20 [Augmentin 875-125 Tablet] Allergies Allergy/AdvReac Type Severity Reaction Status Date / Time No Known Allergies Allergy Verified 01/10/23 18:29 Review of Systems ROS Statement: Those systems with pertinent positive or pertinent negative responses have been documented in the HPI. ROS Other: All systems not noted in ROS Statement are negative. Constitutional: Denies: fever Eyes: Denies: eye pain ENT: Denies: ear pain Respiratory: Denies: cough Cardiovascular: Denies: chest pain Endocrine: Denies: fatigue Gastrointestinal: Reports: as per HPI, abdominal pain, nausea Genitourinary: Reports: as per HPI, urgency. Denies: hematuria Musculoskeletal: Reports: as per HPI Skin: Denies: rash Neurological: Denies: weakness Past Medical History Past Medical History: No Reported History Additional Past Medical History / Comment(s): 06/08/20 ruptured appendix with surgery, ear infections as a child. hydrocele to testicles History of Any Multi-Drug Resistant Organisms: None Reported Past Surgical History: Appendectomy Additional Past Surgical History / Comment(s): 06/08/20 lap appy Past Anesthesia/Blood Transfusion Reactions: No Reported Reaction Past Psychological History: No Psychological Hx Reported Smoking Status: Never smoker - Past Family History Father Family Medical History: No Reported History Additional Family Medical History / Comment(s): Father is healthy Mother Family Medical History: No Reported History Additional Family Medical History / Comment(s): Mother is healthy General Exam Limitations: no limitations General appearance: alert, in no apparent distress Head exam: Present: normocephalic Eye exam: Present: normal appearance Neck exam: Present: normal inspection Respiratory exam: Present: normal lung sounds bilaterally Cardiovascular Exam: Present: regular rate, normal rhythm GI/Abdominal exam: Present: soft, tenderness (Minimal tenderness just right of suprapubic region), normal bowel sounds. Absent: distended, guarding, rebound, rigid, pulsatile mass exam: Present: normal inspection. Absent: testicular tenderness, urethral discharge, scrotal swelling Extremities exam: Present: normal inspection Back exam: Present: normal inspection. Absent: CVA tenderness (R) Neurological exam: Present: alert Psychiatric exam: Present: normal affect, normal mood Skin exam: Present: normal color Course Vital Signs 03/22/23 12:14 Temperature 98 F Pulse Rate 78 Respiratory 16 Rate Blood Pressure 187/100 O2 Sat by Pulse 98 Oximetry Medical Decision Making - Medical Decision Making Was pt. sent in by a medical professional or institution (, PA, PRODUCTION CREW SUPERVISOR, urgent care, hospital, or snf...) When possible be specific @ -[No] Did you speak to anyone other than the patient for history (EMS, parent, family, police, friend...)? What history was obtained from this source @ -[No] Did you review nursing and triage notes (agree or disagree)? Why? @ -[I reviewed and agree with nursing and triage notes] Were old charts reviewed (outside hosp., previous admission, EMS record, old EKG, old radiological studies, urgent care reports/EKG's, snf records)? Report findings @ -[No old charts were reviewed] Differential Diagnosis (chest pain, altered mental status, abdominal pain women, abdominal pain men, vaginal bleeding, weakness, fever, dyspnea, syncope, headache, dizziness, GI bleed, back pain, seizure, CVA, palpatations, mental health, musculoskeletal)? @ -Differential Abdominal Pain Men: Appendicitis, cholecystitis, diverticulosis, ischemic bowel, pancreatitis, hepatitis, UTI, gastroenteritis, AAA, incarcerated hernia, bowel obstruction, constipation, inflammatory bowel, hepatitis, peptic ulcer disease, splenic infarction, perforated viscus, testicular torsion, this is not meant to be an all-inclusive list EKG interpreted by me (3pts min.). @ -[As above] X-rays interpreted by me (1pt min.). @ -[None done] CT interpreted by me (1pt min.). @ -Report reviewed U/S interpreted by me (1pt. min.). @ -[None done] What testing was considered but not performed or refused? (CT, X-rays, U/S, labs)? Why? @ -[None] What meds were considered but not given or refused? Why? @ -[None] Did you discuss the management of the patient with other professionals (professionals i.e. , PA, PRODUCTION CREW SUPERVISOR, lab, RT, psych nurse, director social service, powdered metal supervisor, teacher, chief analytics officer, telephonic nurse case manager)? Give summary @ -[No] Was smoking cessation discussed for >3mins.? @ -[No] Was critical care preformed (if so, how long)? @ -[No] Were there social determinants of health that impacted care today? How? (Homelessness, low income, unemployed, alcoholism, drug addiction, transportation, low edu. Level, literacy, decrease access to med. care, halfway, rehab)? @ -[No] Was there de-escalation of care discussed even if they declined (Discuss DNR or withdrawal of care, Hospice)? DNR status @ -[No] What co-morbidities impacted this encounter? (DM, HTN, Smoking, COPD, CAD, Cancer, CVA, ARF, Chemo, Hep., AIDS, mental health diagnosis, sleep apnea, morbid obesity)? @ -[None] Was patient admitted / discharged? Hospital course, mention meds given and route, prescriptions, significant lab abnormalities, going to OR and other pertinent info. @ -Patient reevaluated and resting comfortably in bed, remained symptom-free. Patient updated on results and need for follow-up. Patient does request Tylenol for a small headache that he has. Undiagnosed new problem with uncertain prognosis? @ -[No] Drug Therapy requiring intensive monitoring for toxicity (Heparin, Nitro, Insulin, Cardizem)? @ -[No] Were any procedures done? @ -[No] Diagnosis/symptom? @ -Abdominal pain Acute, or Chronic, or Acute on Chronic? @ -Acute Uncomplicated (without systemic symptoms) or Complicated (systemic symptoms)? @ -[default] Side effects of treatment? @ -[No] Exacerbation, Progression, or Severe Exacerbation? @ -[No] Poses a threat to life or bodily function? How? (Chest pain, [place], [place], pneumonia, PE, COPD, DKA, ARF, appy, cholecystitis, CVA, Diverticulitis, Homicidal, Suicidal, threat to staff... and all critical care pts) @ -[No] - Lab Data Result diagrams: 03/22/23 15:32 03/22/23 15:32 Lab Results 03/22/23 03/22/23 03/22/23 Range/Units 15:16 15:32 15:32 WBC 8.8 (3.8-10.6) k/uL RBC 5.76 (4.30-5.90) m/uL Hgb 17.5 (13.0-17.5) gm/dL Hct 49.2 (39.0-53.0) % MCV 85.4 (80.0-100.0) fL MCH 30.4 (25.0-35.0) pg MCHC 35.6 (31.0-37.0) g/dL RDW 13.2 (11.5-15.5) % Plt Count 235 (150-450) k/uL MPV 7.3 Neutrophils % 61 % Lymphocytes % 28 % Monocytes % 5 % Eosinophils % 3 % Basophils % 1 % Neutrophils # 5.4 (1.3-7.7) k/uL Lymphocytes # 2.5 (1.0-4.8) k/uL Monocytes # 0.4 (0-1.0) k/uL Eosinophils # 0.2 (0-0.7) k/uL Basophils # 0.1 (0-0.2) k/uL Hyperchromasia Slight PT 10.3 (10.0-12.5) sec INR 0.9 (<1.2) APTT 26.2 (22.0-30.0) sec Sodium (137-145) mmol/L Potassium (3.5-5.1) mmol/L Chloride (98-107) mmol/L Carbon Dioxide (22-30) mmol/L Anion Gap mmol/L BUN (9-20) mg/dL Creatinine (0.66-1.25) mg/dL Est GFR (CKD-EPI)AfAm (>60 ml/min/1.73 sqM) Est GFR (CKD-EPI)NonAf (>60 ml/min/1.73 sqM) Glucose (74-99) mg/dL Calcium (8.4-10.2) mg/dL Total Bilirubin (0.2-1.3) mg/dL AST (17-59) U/L ALT (4-49) U/L Alkaline Phosphatase (38-126) U/L Total Protein (6.3-8.2) g/dL Albumin (3.5-5.0) g/dL Amylase (30-110) U/L Lipase (23-300) U/L Urine Color Colorless Urine Appearance Clear (Clear) Urine pH 5.5 (5.0-8.0) Ur Specific [place] 1.015 (1.001-1.035) Urine Protein Negative (Negative) Urine Glucose (UA) Negative (Negative) Urine Ketones Negative (Negative) Urine Blood Negative (Negative) Urine Nitrite Negative (Negative) Urine Bilirubin Negative (Negative) Urine Urobilinogen <2.0 (<2.0) mg/dL Ur Leukocyte Esterase Negative (Negative) 03/22/23 Range/Units 15:32 WBC (3.8-10.6) k/uL RBC (4.30-5.90) m/uL Hgb (13.0-17.5) gm/dL Hct (39.0-53.0) % MCV (80.0-100.0) fL MCH (25.0-35.0) pg MCHC (31.0-37.0) g/dL RDW (11.5-15.5) % Plt Count (150-450) k/uL MPV Neutrophils % % Lymphocytes % % Monocytes % % Eosinophils % % Basophils % % Neutrophils # (1.3-7.7) k/uL Lymphocytes # (1.0-4.8) k/uL Monocytes # (0-1.0) k/uL Eosinophils # (0-0.7) k/uL Basophils # (0-0.2) k/uL Hyperchromasia PT (10.0-12.5) sec INR (<1.2) APTT (22.0-30.0) sec Sodium 140 (137-145) mmol/L Potassium 3.9 (3.5-5.1) mmol/L Chloride 101 (98-107) mmol/L Carbon Dioxide 25 (22-30) mmol/L Anion Gap 14 mmol/L BUN 17 (9-20) mg/dL Creatinine 0.76 (0.66-1.25) mg/dL Est GFR (CKD-EPI)AfAm >90 (>60 ml/min/1.73 sqM) Est GFR (CKD-EPI)NonAf >90 (>60 ml/min/1.73 sqM) Glucose 89 (74-99) mg/dL Calcium 10.4 H (8.4-10.2) mg/dL Total Bilirubin 0.7 (0.2-1.3) mg/dL AST 32 (17-59) U/L ALT 60 H (4-49) U/L Alkaline Phosphatase 76 (38-126) U/L Total Protein 9.0 H (6.3-8.2) g/dL Albumin 5.5 H (3.5-5.0) g/dL Amylase 68 (30-110) U/L Lipase 97 (23-300) U/L Urine Color Urine Appearance (Clear) Urine pH (5.0-8.0) Ur Specific [place] (1.001-1.035) Urine Protein (Negative) Urine Glucose (UA) (Negative) Urine Ketones (Negative) Urine Blood (Negative) Urine Nitrite (Negative) Urine Bilirubin (Negative) Urine Urobilinogen (<2.0) mg/dL Ur Leukocyte Esterase (Negative) Disposition Clinical Impression: Abdominal pain Disposition: HOME SELF-CARE Condition: Stable Instructions (If sedation given, give patient instructions): Abdominal Pain (ED) Additional Instructions: Please do follow-up with your primary care physician in the next one or 2 days for recheck. Have primary care physician review further tests still pending today. Consider urology follow-up. Return for increased pain, fever, vomiting, worsening or changing symptoms or other concerns. Is patient prescribed a controlled substance at d/c from ED?: No Referrals: Doug Barnes DO [Primary Care Provider] - 1-2 days Santiago Grimm MD [STAFF PHYSICIAN] - 1-2 days Time of Disposition: 16:46
[2023-03-22 15:59] LABS: Basophils # (A) 0.1 k/uL (0-0.2); Basophils % (A) 1 %; Eosinophils # (A) 0.2 k/uL (0-0.7); Eosinophils % (A) 3 %; HCT 49.2 % (39.0-53.0); HGB 17.5 gm/dL (13.0-17.5); Hyperchromasia Slight; Lymphocytes # (A) 2.5 k/uL (1.0-4.8); Lymphocytes % (A) 28 %; MCH 30.4 pg (25.0-35.0); MCHC 35.6 g/dL (31.0-37.0); MCV 85.4 fL (80.0-100.0); Mean Platelet Volume 7.3; Monocytes # (A) 0.4 k/uL (0-1.0); Monocytes % (A) 5 %; Neutrophils # (A) 5.4 k/uL (1.3-7.7); Neutrophils % (A) 61 %; Platelet Count 235 k/uL (150-450); RBC 5.76 m/uL (4.30-5.90); RDW 13.2 % (11.5-15.5); WBC 8.8 k/uL (3.8-10.6)
[2023-03-22 16:10] LABS: Appearance,Urine Clear (Clear); Bilirubin,Urine Negative (Negative); Blood,Urine Negative (Negative); Color,Urine Colorless; Glucose,Urine (UA) Negative (Negative); Ketones,Urine Negative (Negative); Leukocyte Esterase,Urine Negative (Negative); Nitrite,Urine Negative (Negative); PH, Urine 5.5 (5.0-8.0); Protein,Urine Negative (Negative); Specific Gravity,Urine 1.015 (1.001-1.035); Urobilinogen,Urine <2.0 mg/dL (<2.0)
[2023-03-22 16:11] LABS: ALT 60 U/L (4-49); AST 32 U/L (17-59); African American GFR (CKD) >90 (>60 ml/min/1.73 sqM); Albumin 5.5 g/dL (3.5-5.0); Alkaline Phosphatase 76 U/L (38-126); Amylase 68 U/L (30-110); Anion Gap 14 mmol/L; Blood Urea Nitrogen 17 mg/dL (9-20); Calcium 10.4 mg/dL (8.4-10.2); Carbon Dioxide 25 mmol/L (22-30); Chloride 101 mmol/L (98-107); Glucose 89 mg/dL (74-99); Lipase 97 U/L (23-300); Non-African American GFR(CKD) >90 (>60 ml/min/1.73 sqM); Potassium 3.9 mmol/L (3.5-5.1); Sodium 140 mmol/L (137-145); Total Bilirubin 0.7 mg/dL (0.2-1.3)
[2023-03-22 16:14] LABS: INR 0.9 (<1.2); Partial Thromboplastin Time 26.2 sec (22.0-30.0); Prothrombin Time 10.3 sec (10.0-12.5)
--- NOTE | 2023-03-22 16:32 | CT ---
EXAMINATION TYPE: CT abdomen pelvis wo con DATE OF EXAM: 03/22/2023 COMPARISON: 08/28/2022 HISTORY: 27-year-old male Flank pain radiating down to the groin. CT DLP: 755.7 mGycm. Automated exposure control for dose reduction was used. TECHNIQUE: Contiguous axial scanning of the abdomen and pelvis without IV contrast. Coronal and sagit catherine reconstructions performed. FINDINGS: LUNG BASES: No significant abnormality is appreciated. LIVER/GB: Liver mildly enlarged at 19.5 cm. Redemonstrated markedly diminished attenuation of the christiano er parenchyma compatible with fatty infiltration. Gallbladder within normal limits. PANCREAS: No significant abnormality is seen. SPLEEN: Enlarged measuring 15.2 cm. This is in comparison to 14.8 cm, previously. ADRENALS: No significant abnormality is seen. KIDNEYS: No significant abnormality is seen. No nephrolithiasis or hydronephrosis. BOWEL: No dilated small bowel, free fluid, or free air. Mild overall burden. Surgical material right lower quadrant related to prior appendectomy. No pericolonic inflammatory change. LYMPH NODES: No significant abnormality is seen. OTHER: No significant abnormality is seen. PELVIS: Bladder nondistended. No abnormal fluid collection in the pelvis or pelvic lymphadenopathy. BONES: No significant abnormality is seen. IMPRESSION: 1. Hepatosplenomegaly (liver 19.5 cm and spleen 15.2 cm). This spleen previously measured 14.8 cm. C linically correlate. There is severe hepatic steatosis. Further clinical management is advised. 2. Status post appendectomy. No nephrolithiasis, hydronephrosis, or other acute inflammatory process identified in the abdomen or pelvis to explain patient's symptoms.
[2023-03-22] MEDS ORDERED: ACETAMINOPHEN TAB 500 MG TAB PO STA (16:50)
[2023-03-22 17:30] VITALS: BP 121/79; PULSE 80; RESP 18; TEMP 98.1
[2023-03-23 15:52] LABS: Chlamydia trachomatis rRNA Not detected; Neisseria gonorrhoeae rRNA Not detected
== END 2023-03-22 17:27 | disposition home or self-care (01) ==
LOC: EC 12:09
DX: R10.31 Right lower quadrant pain (principal); R51.9 Headache, unspecified
CPT/HCPCS: 36415; 74176; 80053; 81003; 82150; 83690; 85025; 85610; 85730; 87491; 87591; 99284

== ENCOUNTER → 2023-03-25 | Outpatient (CLI) | payer OTHER ==
--- NOTE | 2023-03-25 15:46 | US ---
EXAMINATION TYPE: US kidneys/renal and bladder DATE OF EXAM: 03/25/2023 COMPARISON: CT abdomen and pelvis 03/22/2023 CLINICAL INDICATION: Male, 27 years old with history of R35.0 FREQUENCY OF [id number] FREQUENCY OF MICTURITION; Low back pain EXAM MEASUREMENTS: Right Kidney: 13.1 x 5.1 x 5.4 cm Left Kidney: 12.9 x 5.1 x 5.8 cm Post Void Residual Volume: .8 mL Right Kidney: 13.1 x 5.1 x 5.4 cm Left Kidney: 12.9 x 5.1 x 5.8 cm Bladder: not fully distended Bilateral Jets seen: no Normal Post Void Residual: yes There is no evidence for hydronephrosis at this point in time. No nephrolithiasis is seen. No francis s are identified. Cortical medullary differentiation is maintained bilaterally. The urinary bladder i s anechoic but underdistended. Bilateral ureteral jets are not seen. Hyperechoic appearance of the l iver. IMPRESSION: 1. No hydronephrosis or nephrolithiasis. 2. Hepatic steatosis.
== END | disposition home or self-care (01) ==
LOC: RADUSWWP 15:14
PROVIDERS: ATTEND Family Medicine
DX: K76.0 Fatty (change of) liver, not elsewhere classified (principal); M54.50 Low back pain, unspecified; R35.0 Frequency of micturition
CPT/HCPCS: 76770

== ENCOUNTER 2023-07-07 21:11 | Emergency (ER) | payer OTHER ==
[2023-07-07 21:36] VITALS: TEMP 99
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
[2023-07-07] MEDS: ONDANSETRON 4 MG ODT STARTER PACK 2 TAB BTL PO STA (22:55)
[2023-07-07] MEDS: ONDANSETRON ODT 4 MG TAB PO STA (22:55)
[2023-07-07 23:04] VITALS: BP 136/88; PULSE 94; RESP 20
== END 2023-07-07 23:00 | disposition home or self-care (01) ==
LOC: EC 21:11
DX: J10.1 Influenza due to other identified influenza virus with other respiratory manifestations (principal); Z20.822 Contact with and (suspected) exposure to COVID-19
CPT/HCPCS: 87636; 99284; S0119

== ENCOUNTER → 2023-07-13 | Outpatient (CLI) | payer OTHER ==
[2023-07-13 16:17] LABS: ALT 112 U/L (10-49); AST 62 U/L (14-35); Albumin 5.5 g/dL (3.8-4.9); Albumin/Globulin Ratio 1.62 Ratio (1.60-3.17); Alkaline Phosphatase 96 U/L (41-126); Blood Urea Nitrogen 11.5 mg/dL (9.0-27.0); Calcium 10.6 mg/dL (8.7-10.3); Carbon Dioxide 24.8 mmol/L (21.6-31.8); Chloride 102 mmol/L (96-109); Globulin 3.4 g/dL (1.6-3.3); Glucose 88 mg/dL (70-110); Potassium 4.6 mmol/L (3.5-5.5); Sodium 142 mmol/L (135-145); Total Bilirubin 0.6 mg/dL (0.3-1.2); Total Protein 8.9 g/dL (6.2-8.2)
[2023-07-13 18:03] LABS: C-Peptide 5.46 ng/mL (0.81-3.85)
== END | disposition home or self-care (01) ==
LOC: LABWHC1 09:14
PROVIDERS: ATTEND Internal Medicine Endocrinology, Diabetes & Metabolism
DX: E83.52 Hypercalcemia (principal); R35.81 Nocturnal polyuria; R35.0 Frequency of micturition
CPT/HCPCS: 36415; 80053; 82306; 83036; 83970; 84146; 84305; 84681

== ENCOUNTER → 2023-08-10 | Outpatient (CLI) | payer OTHER ==
[2023-08-10 11:25] LABS: Protein, Total 7.8 g/dL (6.2-8.2)
[2023-08-10 13:19] LABS: Free Kappa Lt Chain Qnt, Serum 1.53 mg/dL (0.33-1.94); Free Lambda Lt Chain Qnt, Seru 1.33 mg/dL (0.57-2.63)
[2023-08-11 17:16] LABS: Albumin 4.91 g/dL (3.80-4.90); Gamma Globulin 1.06 g/dL (0.70-1.50)
== END | disposition home or self-care (01) ==
LOC: LABWHC1 08:20
PROVIDERS: ATTEND Internal Medicine Endocrinology, Diabetes & Metabolism
DX: E83.52 Hypercalcemia (principal)
CPT/HCPCS: 36415; 83883; 84165; 86335

== ENCOUNTER → 2023-08-31 | Outpatient (CLI) | payer OTHER ==
[2023-08-31 11:38] LABS: T4, Free (Free Thyroxine) 1.47 ng/dL (0.80-1.80)
== END | disposition home or self-care (01) ==
LOC: LABWHC1 08:06
PROVIDERS: ATTEND Internal Medicine Endocrinology, Diabetes & Metabolism
DX: E34.9 Endocrine disorder, unspecified (principal)
CPT/HCPCS: 36415; 84439; 84443

== ENCOUNTER 2024-08-09 21:10 | Emergency (ER) | payer OTHER ==
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
[2024-08-09] MEDS: Acetaminophen-Codeine 300-30mg TAB PO STA (22:38)
[2024-08-09] MEDS: ACET/COD 300 MG/30 MG STARTER PACK 6 TAB BTL PO STA (22:38)
[2024-08-09 22:42] VITALS: BP 141/90; PULSE 82; RESP 18; TEMP 97.6
== END 2024-08-09 22:43 | disposition home or self-care (01) ==
LOC: EC 21:10
DX: K08.89 Other specified disorders of teeth and supporting structures (principal)
CPT/HCPCS: 99282